=== PATIENT | female | born 1980 | race Caucasian/White ===

== ENCOUNTER 2020-06-12 16:47 | Outpatient (CLI) | payer BC, SELFPAY ==
--- NOTE | ~2020-06-12 | MM_ITS ---
EXAMINATION: MM screening margarita BI w roland HISTORY: Screening TECHNIQUE: Craniocaudal and mediolateral oblique 3-D tomosynthesis images were obtained and synthetic 2-D images were generated. CAD analysis was submitted and interpreted. COMPARISON: 08/25/2010 BREAST PARENCHYMAL COMPOSITION: There are scattered areas of fibroglandular density. FINDINGS: The right breast is stable without evidence for malignancy. There are developing asymmetrie s in the upper outer quadrant of the left breast. IMPRESSION: 1. Developing left breast asymmetry. 2. Additional mammographic views and possible breast ultrasound are recommended. BI-RADS Category 0: Incomplete: Needs additional imaging evaluation. Reviewed, dictated and finalized at location A. IMPRESSION: 1. Developing left breast asymmetry. 2. Additional mammographic views and possible breast ultrasound are recommended . BI-RADS Category 0: Incomplete: Needs additional imaging evaluation.
== END 2020-06-12 16:48 | disposition home or self-care (01) ==
PROVIDERS: Visit Provider Obstetrics & Gynecology
DX: Z12.31 Encounter for screening mammogram for malignant neoplasm of breast (principal); R92.8 Other abnormal and inconclusive findings on diagnostic imaging of breast
CPT/HCPCS: 77063; 77067

== ENCOUNTER 2020-07-24 12:47 | Outpatient (CLI) | payer BC, SELFPAY ==
--- NOTE | ~2020-07-24 | MMUS_ITS ---
EXAMINATION: MM diagnostic mammo unilat LT, US breast LT limited HISTORY: Developing asymmetry in the upper outer left breast on 06/12/2020 screening mammogram examinat ions TECHNIQUE: Additional 3-D tomosynthesis images of the left breast were performed and synthetic 2-D im ages were generated. CAD analysis was submitted and interpreted. High resolution upper outer quadrant left breast ultrasound examination was performed. COMPARISON: 08/25/2010 bilateral diagnostic digital mammogram and left breast ultrasound 06/12/2020 bilateral digital screening mammogram FINDINGS: MAMMOGRAPHIC FINDINGS: There is asymmetric increased density in the upper outer quadrant of the left breast, largely circums cribed and low density. ULTRASOUND: No discrete suspicious mass or cyst is identified in the upper outer quadrant of the left breast . Th e increased density noted mammographically may be due to asymmetric fibroglandular stroma. Differenti al diagnosis includes benign hamartoma. IMPRESSION: 1. Probably benign finding 2. 6 month diagnostic left mammogram follow-up is recommended, with ultrasound if required BI-RADS category 3, probably benign findings. Reviewed, dictated and finalized at location A. IMPRESSION: 1. Probably benign finding 2. 6 month diagnostic left mammogram follow-up is recommended, with ultrasound if required BI-RADS category 3, probably benign findings.
== END 2020-07-24 12:48 | disposition home or self-care (01) ==
LOC: ANHIMG 12:49
PROVIDERS: Visit Provider Obstetrics & Gynecology
DX: R92.8 Other abnormal and inconclusive findings on diagnostic imaging of breast (principal)
CPT/HCPCS: 76642; 77065

== ENCOUNTER 2021-02-10 11:42 | Outpatient (CLI) | payer OTHER, BC, SELFPAY ==
--- NOTE | ~2021-02-10 | MMUS_ITS ---
EXAMINATION: MM diagnostic margarita LT w roland, US breast LT limited HISTORY: 6 month diagnostic left mammogram and ultrasound follow-up of probably benign finding (asymm etric mammographic increased density in the upper outer quadrant of the left breast) TECHNIQUE: Full field and spot ML, MLO and craniocaudal 3-D tomosynthesis images of the left breast w ere performed and synthetic 2-D images were generated. CAD analysis was submitted and interpreted. Hi gh resolution upper outer quadrant left breast ultrasound was performed. COMPARISON: 07/24/2020 diagnostic left mammogram and limited left breast ultrasound 06/12/2020 bilateral digital screening mammogram BREAST PARENCHYMAL COMPOSITION: There are scattered areas of fibroglandular density. FINDINGS: MAMMOGRAPHIC FINDINGS: Stable mammographic asymmetry in the upper outer quadrant of the left breast. No interval suspicious mass or architectural distortion or architectural distortion or significant new or developing density is evident since 06/12/2020. No significant new or developing density. ULTRASOUND: No suspicious mass or architectural distortion or other significant sonographic abnormality is noted in the upper outer quadrant of the left breast. IMPRESSION: 1. No mammographic evidence of malignancy 2. Routine annual mammographic screening is recommended. BI-RADS Category 1: Negative Reviewed, dictated and finalized at location A. IMPRESSION: 1. No mammographic evidence of malignancy 2. Routine annual mammographic screening is recommended. BI-RADS Category 1: Negative
== END 2021-02-10 11:43 | disposition home or self-care (01) ==
PROVIDERS: PCP Family Medicine; Visit Provider Obstetrics & Gynecology
DX: R92.8 Other abnormal and inconclusive findings on diagnostic imaging of breast (principal)
CPT/HCPCS: 76642; 77061; 77065; G0279

== ENCOUNTER 2021-06-02 17:19 | Outpatient (CLI) | payer OTHER, BC, SELFPAY ==
--- NOTE | 2021-06-02 17:22 | ECG_ITS ---
Measurements Intervals [place] Rate: 68 P: -5 CT: 187 QRS: 83 QRSD: 110 T: 38 QT: 398 QTc: 424 Interpretive Statements SINUS RHYTHM INCOMPLETE RIGHT BUNDLE BRANCH BLOCK BORDERLINE T WAVE ABNORMALITY- ANTERIOR LEADS BORDERLINE ECG Electronically Signed On 06-02-2021 21:19:38 CDT by Adonis Westfall D.O.
== END 2021-06-02 17:20 | disposition home or self-care (01) ==
LOC: CHSCARD 17:21
PROVIDERS: PCP Family Medicine; Visit Provider Family Medicine
DX: R00.2 Palpitations (principal); R00.9 Unspecified abnormalities of heart beat
CPT/HCPCS: 93005

== ENCOUNTER 2021-06-03 17:15 | Outpatient (CLI) | payer OTHER, BC, SELFPAY ==
[2021-06-03 17:38] LABS: Hematocrit 41.5 % (35.0-49.0); Hemoglobin 13.5 g/dL (12.0-15.0); Mean Corpuscular HGB Conc 32.5 g/dL (32.0-36.0); Mean Corpuscular Hemoglobin 27.6 pg (27.0-31.0); Mean Corpuscular Volume 84.9 fL (78.0-102.0); Mean Platelet Volume 10.1 fl (9.2-11.8); Platelet Count Result 285 K/mm3 (150-420); Red Blood Count 4.89 M/mm3 (4.20-5.40); Red Cell Distribution Width 12.9 % (11.6-14.4); White Blood Count 7.2 K/mm3 (4.8-10.8)
[2021-06-03 17:47] LABS: Hemoglobin A1C 5.2 % (<5.7)
[2021-06-03 18:29] LABS: Alanine Aminotransferase 31 U/L (14-59); Albumin Level 3.8 g/dL (3.4-5.0); Alkaline Phosphatase 111 U/L (46-116); Anion Gap 12 mmol/L (8-16); Aspartate Amino Transferase 12 U/L (15-37); Bilirubin,Total 0.2 mg/dL (0.00-1.00); Blood Urea Nitrogen 18 mg/dL (7-18); Carbon Dioxide 27 mmol/L (21-32); Chloride 104 mmol/L (98-108); Estimated Glomerular Filt Rate > 60; Glucose 107 mg/dL (70-99); Osmolality Calculated 297 mOsm/kg (285-295); Potassium 3.7 mmol/L (3.5-5.1); Sodium 143 mmol/L (136-145); Total Protein 7.1 g/dL (6.4-8.2)
[2021-06-03 18:39] LABS: Thyroid Stimulating Hormone Reflex 2.57 u/IU/mL (0.36-3.74)
== END 2021-06-03 17:16 | disposition home or self-care (01) ==
LOC: CHSLAB 17:18
PROVIDERS: Family Medicine; PCP Family Medicine; Visit Provider Family Medicine
DX: R73.03 Prediabetes (principal); E66.9 Obesity, unspecified; Z68.38 Body mass index [BMI] 38.0-38.9, adult; Z00.00 Encounter for general adult medical examination without abnormal findings; I10 Essential (primary) hypertension
CPT/HCPCS: 36415; 80053; 83036; 84443; 85027

== ENCOUNTER 2022-02-10 09:17 | Outpatient (CLI) | payer OTHER, BC, SELFPAY ==
--- NOTE | ~2022-02-10 | US_ITS ---
EXAMINATION: US abdomen complete DATE: 02/10/2022 09:44 INDICATION: Left upper quadrant abdominal pain. TECHNIQUE: Multiple grayscale and Doppler ultrasound images of the abdomen were obtained. COMPARISON: Ultrasound abdomen 10/26/2012 FINDINGS: The visualized portions of the head and body of the pancreas are normal. Abdominal aorta is normal. Inferior vena cava is normal. The spleen is normal in size. The liver is normal without foca l lesion. There is normal flow in main portal vein. The gallbladder is absent. The common duct is nor mal and measures 4 mm. The kidneys are normal in size. IMPRESSION: 1. Normal complete abdomen ultrasound status post cholecystectomy. Reviewed, dictated and finalized at location A.
== END 2022-02-10 09:18 | disposition home or self-care (01) ==
LOC: CHSIMG 09:21
PROVIDERS: PCP Family Medicine; Visit Provider Nurse Practitioner Family
DX: R10.12 Left upper quadrant pain (principal)
CPT/HCPCS: 76700

== ENCOUNTER 2022-03-09 14:32 | Outpatient (CLI) | payer OTHER, BC, SELFPAY ==
--- NOTE | ~2022-03-09 | XR_ITS ---
EXAM: XR lumbar spine 2-3V HISTORY: L5/S1/coccyx pain since fall in 2018, worse x1wk, no new injury COMPARISON: None available FINDINGS: 5 nonrib-bearing lumbar-type vertebral bodies. Pedicles intact. Minimal 2 mm retrolisthesi s of L4 on L5 and L5 on S1, otherwise normal vertebral body alignment. Vertebral body heights preserv ed. Mild multilevel disc space narrowing and marginal osteophytosis. Mild facet arthropathy in the lo wer lumbar spine. Cholecystectomy clips. IMPRESSION: Mild multilevel degenerative disc disease and facet arthropathy. Reviewed, dictated and finalized at location K.
== END 2022-03-09 14:33 | disposition home or self-care (01) ==
LOC: CHSIMG 14:36
PROVIDERS: PCP Family Medicine; Visit Provider Family Medicine
DX: M54.9 Dorsalgia, unspecified (principal); G89.29 Other chronic pain
CPT/HCPCS: 72100

== ENCOUNTER 2022-11-27 09:09 | Outpatient (CLI) | payer BC, SELFPAY ==
[2022-11-27 09:33] LABS: Creatinine Urine 289.86 mg/dL (40-278); MALB Creatinine Ratio 8.9 mg/g (0-30)
[2022-11-27 09:34] LABS: Hemoglobin A1C 5.5 % (<5.7)
[2022-11-27 10:40] LABS: Alanine Aminotransferase 31 U/L (14-59); Albumin Level 3.6 g/dL (3.4-5.0); Alkaline Phosphatase 101 U/L (46-116); Anion Gap 9 mmol/L (8-16); Aspartate Amino Transferase < 10 U/L (15-37); Bilirubin,Total 0.4 mg/dL (0.00-1.00); Blood Urea Nitrogen 18 mg/dL (7-18); Calcium 8.6 mg/dL (8.5-10.1); Carbon Dioxide 29 mmol/L (21-32); Chloride 107 mmol/L (98-108); Cholesterol 186 mg/dL (0-200); Estimated Glomerular Filt Rate > 60; Glucose 100 mg/dL (70-99); HDL Direct 56 mg/dL (40-60); LDL Cholesterol Calculated 121 mg/dL (<130); Osmolality Calculated 301 mOsm/kg (285-295); Potassium 3.6 mmol/L (3.5-5.1); Sodium 145 mmol/L (136-145); Total Protein 6.9 g/dL (6.4-8.2); Triglycerides 46 mg/dL (0-150)
== END 2022-11-27 09:10 | disposition home or self-care (01) ==
LOC: CHSLAB 09:11
PROVIDERS: PCP Family Medicine; Visit Provider Family Medicine
DX: I10 Essential (primary) hypertension (principal); E11.9 Type 2 diabetes mellitus without complications
CPT/HCPCS: 36415; 80053; 80061; 82043; 83036

== ENCOUNTER 2023-01-06 19:02 | Outpatient (CLI) | payer BC, SELFPAY ==
[2023-01-06 20:14] LABS: Strep Group A RT-PCR NOT DETECTED (Negative)
== END 2023-01-06 19:03 | disposition home or self-care (01) ==
LOC: CHSLAB 19:04
PROVIDERS: PCP Family Medicine; Visit Provider Family Medicine
DX: J02.9 Acute pharyngitis, unspecified (principal)
CPT/HCPCS: 87651

== ENCOUNTER 2023-05-18 16:33 | Outpatient (CLI) | payer BC, SELFPAY ==
[2023-05-18 16:56] LABS: Basophils Absolute Auto 0.03 K/mm3 (0.00-0.10); Basophils Percent Auto 0.6 % (0.0-1.0); Eosinophils Absolute Auto 0.07 K/mm3 (0.02-0.50); Eosinophils Percent Auto 1.4 % (1.0-6.0); Hematocrit 43.8 % (35.0-49.0); Hemoglobin 14.7 g/dL (12.0-15.0); Immature Granulocyte Absolute 0.02 K/mm3 (0.00-0.00); Immature Granulocyte Percent A 0.4 % (0.0-0.0); Lymphocytes Percent Auto 34.4 % (18.0-42.0); Mean Corpuscular HGB Conc 33.6 g/dL (32.0-36.0); Mean Corpuscular Hemoglobin 28.7 pg (27.0-31.0); Mean Corpuscular Volume 85.4 fL (78.0-102.0); Mean Platelet Volume 10.4 fl (9.2-11.8); Monocytes Absolute Auto 0.48 K/mm3 (0.10-0.90); Monocytes Percent Auto 9.7 % (2.0-11.0); Neutrophils Absolute Auto 2.6 K/mm3 (1.7-7.2); Neutrophils Percent Auto 53.5 % (50.0-70.0); Platelet Count Result 290 K/mm3 (150-420); Red Blood Count 5.13 M/mm3 (4.20-5.40); Red Cell Distribution Width 12.7 % (11.6-14.4); White Blood Count 4.9 K/mm3 (4.8-10.8)
[2023-05-18 17:11] LABS: Alanine Aminotransferase 63 U/L (14-59); Alkaline Phosphatase 94 U/L (46-116); Anion Gap 11 mmol/L (8-16); Aspartate Amino Transferase 28 U/L (15-37); Bilirubin,Total 0.4 mg/dL (0.00-1.00); Blood Urea Nitrogen 14 mg/dL (7-18); Calcium 9.4 mg/dL (8.5-10.1); Carbon Dioxide 28 mmol/L (21-32); Chloride 105 mmol/L (98-108); Estimated Glomerular Filt Rate > 60; Glucose 81 mg/dL (70-99); Lipase 48 U/L (16-77); Osmolality Calculated 297 mOsm/kg (285-295); Sodium 144 mmol/L (136-145); Total Protein 7.7 g/dL (6.4-8.2)
[2023-05-24 02:10] LABS: Hepatitis A Antibody IgM Nonreactive; Hepatitis B Core Antibody Nonreactive (Nonreactive); Hepatitis B Surface Antigen Nonreactive (Nonreactive); Hepatitis C Virus Antibody Nonreactive
== END 2023-05-18 16:34 | disposition home or self-care (01) ==
PROVIDERS: PCP Nurse Practitioner Family; Visit Provider Nurse Practitioner Family
DX: R79.89 Other specified abnormal findings of blood chemistry (principal); R11.0 Nausea; R19.7 Diarrhea, unspecified
CPT/HCPCS: 36415; 80053; 80074; 83690; 85025; 87045; 87269; 87324; 87427

== ENCOUNTER 2023-05-26 20:07 | Emergency (ER) | payer OTHER, SELFPAY ==
[2023-05-26 20:17] VITALS: BP 130/90; PULSE 100; RESP 20; TEMP 36.8; O2SAT 97
[2023-05-26] MEDS: KETOROLAC (*BKC) 60 MG/2 ML VIAL IM (20:33)
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
[2023-05-26 21:20] VITALS: BP 133/74; PULSE 85; RESP 18; TEMP 36.6; O2SAT 97
== END 2023-05-26 21:27 | disposition home or self-care (01) ==
PROVIDERS: Emergency Provider Emergency Medicine; PCP Nurse Practitioner Family
DX: M53.3 Sacrococcygeal disorders, not elsewhere classified (principal); I10 Essential (primary) hypertension; V49.40XA Driver injured in collision with unspecified motor vehicles in traffic accident, initial encounter
CPT/HCPCS: 96372; 99283; J1885

== ENCOUNTER 2023-08-12 12:01 | Outpatient (CLI) | payer BC, SELFPAY ==
--- NOTE | 2023-08-12 12:05 | ECG_ITS ---
Measurements Intervals [place] Rate: 58 P: -9 TN: 190 QRS: 67 QRSD: 92 T: 44 QT: 435 QTc: 429 Interpretive Statements SINUS BRADYCARDIA MODERATE T-WAVE ABNORMALITY, CONSIDER ANTERIOR ISCHEMIA [-0.1+ mV T-WAVE IN V3/V4] ABNORMAL ECG COMPARED TO ECG 06/02/2021 17:36:06 SINUS BRADYCARDIA NOW PRESENT Electronically Signed On 08-13-2023 8:35:39 CDT by Arcadio Eid M.D.
[2023-08-12 12:58] LABS: Alanine Aminotransferase 29 U/L (14-59); Albumin Level 3.9 g/dL (3.4-5.0); Alkaline Phosphatase 99 U/L (46-116); Anion Gap 8 mmol/L (8-16); Aspartate Amino Transferase 13 U/L (15-37); Bilirubin,Total 0.4 mg/dL (0.00-1.00); Blood Urea Nitrogen 17 mg/dL (7-18); Calcium 9.7 mg/dL (8.5-10.1); Carbon Dioxide 30 mmol/L (21-32); Chloride 103 mmol/L (98-108); Cholesterol 194 mg/dL (0-200); Estimated Glomerular Filt Rate > 60; Glucose 81 mg/dL (70-99); HDL Direct 53 mg/dL (40-60); LDL Cholesterol Calculated 128 mg/dL (<130); Osmolality Calculated 292 mOsm/kg (285-295); Potassium 4.1 mmol/L (3.5-5.1); Sodium 141 mmol/L (136-145); Total Protein 7.2 g/dL (6.4-8.2); Triglycerides 64 mg/dL (0-150)
[2023-08-12 13:00] LABS: Thyroid Stimulating Hormone Reflex 1.58 u/IU/mL (0.36-3.74)
[2023-08-12 14:33] LABS: Folic Acid 4.6 ng/mL (8.6->20); Iron 49 ug/dL (50-170); Percent Iron Saturation 17 % (12-57); Vitamin B12 529 pg/mL (193-986)
[2023-08-12 15:54] LABS: Basophils Absolute Auto 0.03 K/mm3 (0.00-0.10); Basophils Percent Auto 0.5 % (0.0-1.0); Eosinophils Absolute Auto 0.08 K/mm3 (0.02-0.50); Eosinophils Percent Auto 1.4 % (1.0-6.0); Hematocrit 45.3 % (35.0-49.0); Hemoglobin 14.9 g/dL (12.0-15.0); Immature Granulocyte Absolute 0.01 K/mm3 (0.00-0.00); Immature Granulocyte Percent A 0.2 % (0.0-0.0); Lymphocytes Absolute Auto 1.65 K/mm3 (1.10-4.50); Mean Corpuscular HGB Conc 32.9 g/dL (32.0-36.0); Mean Corpuscular Volume 88.3 fL (78.0-102.0); Mean Platelet Volume 12.3 fl (9.2-11.8); Monocytes Absolute Auto 0.33 K/mm3 (0.10-0.90); Monocytes Percent Auto 5.6 % (2.0-11.0); Neutrophils Absolute Auto 3.8 K/mm3 (1.7-7.2); Neutrophils Percent Auto 64.3 % (50.0-70.0); Platelet Count Result 252 K/mm3 (150-420); Red Blood Count 5.13 M/mm3 (4.20-5.40); Red Cell Distribution Width 13.2 % (11.6-14.4); White Blood Count 5.9 K/mm3 (4.8-10.8)
[2023-08-12 15:57] LABS: Immature Reticulocyte Fraction 4.8 % (2.0-16.52); Reticulocyte Hemoglobin Conten 32.6 pg (28.0-35.0); Reticulocyte Percent 1.05 % (0.50-1.50); Reticulocytes Absolute 0.05 M/mm3 (0.02-0.1)
== END 2023-08-12 12:02 | disposition home or self-care (01) ==
LOC: CHSLAB 12:05
PROVIDERS: PCP Nurse Practitioner Family; Visit Provider Nurse Practitioner Family
DX: R42 Dizziness and giddiness (principal); Z82.49 Family history of ischemic heart disease and other diseases of the circulatory system; R94.31 Abnormal electrocardiogram [ECG] [EKG]; R00.1 Bradycardia, unspecified
CPT/HCPCS: 36415; 80053; 80061; 82607; 82746; 83540; 83550; 84443; 85025; 85046; 93005

== ENCOUNTER 2023-08-26 08:46 | Outpatient (CLI) | payer BC, SELFPAY ==
--- NOTE | 2023-08-30 09:12 | WPDHOLTEREM ---
Holter/Event Monitor Holter/Event Monitor Date of procedure: 08/26/23 Holter/Event Procedure: 48 Hr Holter Monitor Indications: Dizziness Conclusion: 1. 48 hour holter monitor on 08/26/23. 2. Underlying rhythm is sinus rhythm. HR range 48-136 bpm; average HR 75 bpm. 3. There are 6 premature supraventricular complexes and 1 supraventricular couplet. No supraventricular tachycardia. 4. There is 1 premature ventricular complex. No ventricular tachycardia. 5. No sinoatrial or atrioventricular blocks. No significant pauses greater than 2 seconds. 6. No symptoms available for correlation.
== END 2023-08-26 08:47 | disposition home or self-care (01) ==
LOC: CHSCARD 08:47
PROVIDERS: PCP Nurse Practitioner Family; Visit Provider Nurse Practitioner Family
DX: R42 Dizziness and giddiness (principal); R00.1 Bradycardia, unspecified; Z82.49 Family history of ischemic heart disease and other diseases of the circulatory system
CPT/HCPCS: 93225; 93226

== ENCOUNTER 2023-09-19 07:20 | Outpatient (CLI) | payer BC, SELFPAY ==
--- NOTE | 2023-09-19 07:24 | EST_ITS ---
Patient Info Name: Shelley Garcia Age: 43 years : 1980 Gender: Female Ht: 64 in Wt: 177 lbs BSA: 1.93 m2 Technical Quality: Good Exam Date: 09/19/2023 8:48 AM Exam Location: Echo Lab Patient Status: Outpatient Admit Date: 09/19/2023 Staff Ordering Physician: Sal Tran APRN Attending Provider: Sal Tran APRN Exam Type: CA stress test treadmill w NM Study Info A nuclear treadmill stress test was performed. History/Risk Factors Hypertension: Yes Family History: Coronary Artery Disease Summary 1. 1. Abnormal Juan Jose exercise stress test for ischemic ST changes by ECG criteria. 2. 2. Good functional capacity, achieving 10 METs of workload. 3. 3. Hypertensive response to exercise. 4. 4. Appropriate HR response to exercise. 5. 5. Appropriate HR recovery at 1 minute post exercise. 6. 6. Nuclear scan to follow and will be reported separately. Please correlate with it. Protocol: Juan Jose Stress ECG Details Stage: REST Duration (min): 1 min : 35 sec Speed (mph): 0.0 Grade (%): 0 HR (bpm): 72 SBP (mmHg): 110 DBP (mmHg): 69 METS: --- Stage: REST Duration (min): 1 min : 49 sec Speed (mph): 0.0 Grade (%): 0 HR (bpm): 68 SBP (mmHg): 110 DBP (mmHg): 69 METS: --- Stage: REST Duration (min): 29 min : 7 sec Speed (mph): 0.0 Grade (%): 0 HR (bpm): 96 SBP (mmHg): 110 DBP (mmHg): 69 METS: --- Stage: STAGE 1 Duration (min): 1 min : 0 sec Speed (mph): 1.7 Grade (%): 10 HR (bpm): 110 SBP (mmHg): 110 DBP (mmHg): 69 METS: --- Stage: STAGE 1 Duration (min): 2 min : 0 sec Speed (mph): 1.7 Grade (%): 10 HR (bpm): 124 SBP (mmHg): 110 DBP (mmHg): 69 METS: --- Stage: STAGE 1 Duration (min): 3 min : 0 sec Speed (mph): 1.7 Grade (%): 10 HR (bpm): 130 SBP (mmHg): 158 DBP (mmHg): 57 METS: --- Stage: STAGE 2 Duration (min): 1 min : 0 sec Speed (mph): 2.5 Grade (%): 12 HR (bpm): 144 SBP (mmHg): 158 DBP (mmHg): 57 METS: --- Stage: STAGE 2 Duration (min): 2 min : 0 sec Speed (mph): 2.5 Grade (%): 12 HR (bpm): 150 SBP (mmHg): 158 DBP (mmHg): 57 METS: --- Stage: STAGE 2 Duration (min): 3 min : 0 sec Speed (mph): 2.5 Grade (%): 12 HR (bpm): 160 SBP (mmHg): 134 DBP (mmHg): 72 METS: --- Stage: STAGE 3 Duration (min): 1 min : 0 sec Speed (mph): 3.4 Grade (%): 14 HR (bpm): 174 SBP (mmHg): 134 DBP (mmHg): 72 METS: --- Stage: STAGE 3 Duration (min): 2 min : 0 sec Speed (mph): 3.4 Grade (%): 14 HR (bpm): 182 SBP (mmHg): 134 DBP (mmHg): 72 METS: --- Stage: STAGE 3 Duration (min): 3 min : 0 sec Speed (mph): 3.4 Grade (%): 14 HR (bpm): 187 SBP (mmHg): 134 DBP (mmHg): 72 METS: --- Stage: RECOVERY Duration (min): 0 min : 59 sec Speed (mph): 0.0 Grade (%): 0 HR (bpm): 170 SBP (mmHg): 134 DBP (mmHg): 72 METS: ---
--- NOTE | 2023-09-19 07:24 | ECHO_ITS ---
Patient Info Name: Shelley Garcia Age: 43 years : 1980 Gender: Female Ht: 65 in Wt: 180 lbs BSA: 1.96 m2 HR: 65 bpm BP: 116 / 75 mmHg Heart Rhythm: Sinus Rhythm Technical Quality: Good Exam Date: 09/19/2023 2:39 PM Exam Location: Echo Lab Patient Status: Outpatient Admit Date: 09/19/2023 Staff Ordering Physician: Sal Tran APRN [employer]ester Operator: Rosaura Cardenas RDCS Attending Provider: Sal Tran APRN Exam Type: CA echo doppler color flow Study Info Indications - DIZZNESS Complete two-dimensional, color flow and Doppler transthoracic echocardiogram is performed. History/Risk Factors Hypertension: Yes Family History: Coronary Artery Disease Summary 1. Complete two-dimensional, color flow and Doppler transthoracic echocardiogram is performed. 2. Left ventricular chamber dimension is normal. 3. Left ventricular systolic function is normal, estimated at 60-65%. 4. The left ventricular diastolic function is grade I diastolic dysfunction. 5. E/e' 7 is not elevated. 6. There is trace mitral valve regurgitation. 7. There is mild tricuspid valve regurgitation. 8. No pulmonary hypertension, estimated pulmonary arterial systolic pressure is 26 mmHg. 9. There is trace pulmonic regurgitation. Left Ventricle E/e' 7 is not elevated. Left ventricular chamber dimension is normal. Left ventricular systolic function is normal, estimated at 60-65%. The left ventricular diastolic function is grade I diastolic dysfunction. Right Ventricle Right ventricular systolic function is normal and with normal TAPSE 2.9 cm. Right ventricular chamber dimension is normal. Left Atria Left atrial chamber dimension is normal. Right Atria Right atrial chamber dimension is normal. Aortic Valve The aortic valve is trileaflet. There is no aortic valve stenosis. There is no aortic valve regurgitation. Pulmonic Valve There is trace pulmonic regurgitation. Mitral Valve There is no mitral valve stenosis. There is trace mitral valve regurgitation. Tricuspid Valve There is mild tricuspid valve regurgitation. No pulmonary hypertension, estimated pulmonary arterial systolic pressure is 26 mmHg. Pericardium/Pleural There is no pericardial effusion. Inferior Vena Cava Normal inferior vena cava with >50% collapse upon inspiration consistent with normal right atrial pressure, 5 mmHg. Aorta The aortic root size at the sinus of Valsalva is normal. Left Ventricular Outflow Tract Name Value Normal LVOT 2D LVOT Diameter 2.0 cm LVOT Doppler LVOT Peak Velocity 106 cm/s LVOT Peak Gradient 3 mmHg LVOT Mean Gradient 2 mmHg LVOT VTI 22 cm LVOT VTI/AV VTI Ratio 0.6 LVOT Stroke Volume 73 ml Pulmonic Valve Name Value Normal RVOT Doppler RVOT Peak Gradient 2 mmHg
--- NOTE | 2023-09-19 13:10 | WPDCARIOSTRE ---
Nuclear Stress Test INDICATIONS Indications: Dizziness PROCEDURE Procedure Performed: Myocardial Perf Spect-Multi Procedure: Patient underwent a standard Juan Jose protocol and at peak exercise was injected with 30.3 mCi of cardiolyte. Multiple tomographic images were obtained. These are of good quality. There is no perfusion defect with stress imaging. A separate resting images were obtained after injected with 9.8 mCi of cardiolyte. Multiple tomographic images were obtained. These are of good quality. There is evidence of large size, moderate severity apical and septal perfusion defects with rest imaging. CONCLUSION Conclusion: 1. Normal myocardial perfusion imaging demonstrating no perfusion defect with stress imaging. 2. No evidence of reversible ischemia. 3. Left ventriculogram demonstrates normal measured ejection fraction of 68% with no wall motion abnormalities. 4. TID score 0.72 is normal.
== END 2023-09-19 07:21 | disposition home or self-care (01) ==
LOC: CHSIMG 07:21
PROVIDERS: PCP Family Medicine; Visit Provider Nurse Practitioner Family
DX: R42 Dizziness and giddiness (principal); R55 Syncope and collapse; Z82.49 Family history of ischemic heart disease and other diseases of the circulatory system
CPT/HCPCS: 78452; 93017; 93306; A9502

== ENCOUNTER 2023-12-24 12:59 | Emergency (ER) | payer BC, SELFPAY ==
--- NOTE | ~2023-12-24 | XR_ITS ---
EXAM: XR wrist LT min 3V DATE: 12/24/2023 14:14 HISTORY: LT wrist pain after slipping on ice falling onto LT arm . COMPARISON: 06/14/2016. FINDINGS: Normal mineralization. No fracture or dislocation. No lytic or blastic lesion. Joint space s are maintained. No erosion or periosteal change. Soft tissues within normal limits. IMPRESSION: No acute osseous finding in the left wrist. Reviewed, dictated and finalized at location K. 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
--- NOTE | ~2023-12-24 | XR_ITS ---
EXAM: XR elbow LT 2V, XR humerus LT DATE: 12/24/2023 14:15 (accession [id number]), 12/24/2023 14:13 (accession [id number]) HISTORY: fell on ice on LT arm; severe elbow pain sherly w/twisting LROM . COMPARISON: None available. FINDINGS: Normal mineralization. No fracture or dislocation. No lytic or blastic lesion. Joint space s are maintained. No erosion or periosteal change. Displaced anterior fat pad. IMPRESSION: Left elbow joint effusion, as can be seen with occult radial head fractures in a patient of this age. Reviewed, dictated and finalized at location K. TECH IMPRESSION: Left elbow joint effusion, as can be seen with occult radial head f ractures in a patient of this age.
[2023-12-24 13:02] VITALS: BP 129/97; PULSE 88; RESP 19; TEMP 36.6; O2SAT 100
[2023-12-24] MEDS: IBUPROFEN 600 MG TABLET PO (13:26)
--- NOTE | 2023-12-24 14:04 | ED.UPPEXIN ---
HPI - Extremity Injury (Upper) General Chief Complaint: Extremity Injury, Upper Stated Complaint: L arm injury/slip on ice Time Seen by Provider: 12/24/23 13:02 Source: patient and family Mode of arrival: ambulatory Limitations: no limitations History of Present Illness HPI narrative: this is a 43-year-old female that has left arm pain including her elbow after she fell in a patch of ice earlier this morning causing pain and point tenderness to the left arm and elbow area. Patient has difficulty with movement of her left elbow with point tenderness in the left elbow area with no numbness or tingling has a brisk strong radial pulse on the left. complaint: injury to: left Onset (ago): hour(s) Other Extremity Injury: Left: arm ( tender with decreased range of motion) Handedness: right Place: outdoors Severity: moderate Severity scale (1-10): 6 Relieving factors: immobilization Exacerbating factors: movement of extremity Context: fall Related Data Allergies Allergy/AdvReac Type Severity Reaction Status Date / Time No Known Allergies Allergy Verified 12/24/23 13:09 Review of Systems Review of Systems: All systems reviewed & are unremarkable except as noted in HPI and below PMFSH Past Medical History Medical History Class 2 obesity with body mass index (BMI) of 38.0 to 38.9 in adult Hypertension Incomplete right bundle branch block (RBBB) PCOS (polycystic ovarian syndrome) Pre-diabetes Surgical History Surgical History History of bilateral tubal ligation History of cholecystectomy History of hysterectomy Family History Family History Father , heart attack at 55 yo Acute myocardial infarction Other , massive VT at 42 yo Acute myocardial infarction Other , massive VT at 45 Acute myocardial infarction Other , massive VT 57 yo Acute myocardial infarction Other , massive VT at 36 yo Acute myocardial infarction Social History Social History Smoking status: Never smoker Substance use: never Living arrangements: with family Additional living arrangements comments: . Occupation/Education: occupation Additional occupation/education comments: Works at [employer] Exam Const: General: healthy appearing Nutritional Appearance: well nourished Orientation/consciousness: patient oriented x3 Neck: Neck: normal visual inspection Chest: Chest palpation & inspection: normal inspection of the chest Resp: Effort & Inspection: normal respiratory effort Auscultation: clear to auscultation bilaterally Cardio: Rate: regular rate Rhythm: regular rhythm GI: GI Palp: Yes Soft to palpation Skin: General skin exam: normal color Rashes: no rashes Neuro: General: patient oriented x3 and no meningeal signs Extrem: Other: Tenderness left elbow area with a decreased range of motion and point tenderness Psych: Mental Status: mental status grossly normal Course Course Emergency Course: x-rays reviewed of the left arm left elbow joint effusion and occult radial fracture nondisplaced left arm, advised follow-up with primary care physician and advised orthopedic follow-up. Patient received p.o. Motrin 600mg. Vital Signs Vital signs: Vital Signs Temperature 36.6 C 12/24/23 13:02 Pulse Rate 88 12/24/23 13:02 Respiratory Rate 19 12/24/23 13:02 Blood Pressure 129/97 H 12/24/23 13:02 Pulse Oximetry 100 12/24/23 13:02 Oxygen Delivery Room Air 12/24/23 13:02 Temperature 36.6 C 12/24/23 13:02 Pulse Rate 88 12/24/23 13:02 Respiratory Rate 19 12/24/23 13:02 Blood Pressure 129/97 H 12/24/23 13:02 Pulse Oximetry 100 12/24/23 13:02 Oxygen Delivery Room Air 12/24/23 13:02
[2023-12-24 15:18] VITALS: BP 137/107; PULSE 87; RESP 20; TEMP 36.7; O2SAT 100
== END 2023-12-24 15:18 | disposition home or self-care (01) ==
PROVIDERS: Emergency Provider Emergency Medicine; PCP Nurse Practitioner Family
DX: S52.125A Nondisplaced fracture of head of left radius, initial encounter for closed fracture (principal); I10 Essential (primary) hypertension; W00.0XXA Fall on same level due to ice and snow, initial encounter
CPT/HCPCS: 29105; 73060; 73070; 73110; 99284; A9270

== ENCOUNTER 2024-01-02 10:10 | Outpatient (CLI) | payer BC, SELFPAY ==
--- NOTE | ~2024-01-02 | XR_ITS ---
EXAMINATION: XR elbow LT min 3V DATE: 01/02/2024 10:31 INDICATION: Left elbow injury. TECHNIQUE: 5 views of left elbow were obtained. COMPARISON: Left elbow radiograph 12/24/2023 FINDINGS: Bone alignment normal. No fracture. Joint spaces are normal. There is an enthesophyte at guevara blime tubercle of proximal ulna. No elbow joint effusion. IMPRESSION: 1. No fracture. Reviewed, dictated and finalized at location A. CLOTHIER IMPRESSION: 1. No fracture.
== END 2024-01-02 10:11 | disposition home or self-care (01) ==
PROVIDERS: PCP Family Medicine; Visit Provider Orthopaedic Surgery
DX: M25.522 Pain in left elbow (principal)
CPT/HCPCS: 73080

== ENCOUNTER 2024-01-10 12:06 | Outpatient (CLI) | payer BC, SELFPAY ==
[2024-01-10 12:23] LABS: Basophils Absolute Auto 0.02 K/mm3 (0.00-0.10); Basophils Percent Auto 0.3 % (0.0-1.0); Eosinophils Percent Auto 1.7 % (1.0-6.0); Hemoglobin 14.7 g/dL (12.0-15.0); Immature Granulocyte Absolute 0.03 K/mm3 (0.00-0.00); Immature Granulocyte Percent A 0.5 % (0.0-0.0); Lymphocytes Absolute Auto 1.59 K/mm3 (1.10-4.50); Lymphocytes Percent Auto 26.3 % (18.0-42.0); Mean Corpuscular HGB Conc 33.4 g/dL (32.0-36.0); Mean Corpuscular Hemoglobin 28.9 pg (27.0-31.0); Mean Corpuscular Volume 86.6 fL (78.0-102.0); Mean Platelet Volume 9.9 fl (9.2-11.8); Monocytes Absolute Auto 0.32 K/mm3 (0.10-0.90); Monocytes Percent Auto 5.3 % (2.0-11.0); Neutrophils Percent Auto 65.9 % (50.0-70.0); Platelet Count Result 238 K/mm3 (150-420); Red Blood Count 5.08 M/mm3 (4.20-5.40); Red Cell Distribution Width 11.8 % (11.6-14.4)
[2024-01-10 13:18] LABS: Alanine Aminotransferase 28 U/L (14-59); Albumin Level 3.9 g/dL (3.4-5.0); Alkaline Phosphatase 92 U/L (46-116); Anion Gap 9 mmol/L (8-16); Aspartate Amino Transferase 12 U/L (15-37); Bilirubin,Total 0.6 mg/dL (0.00-1.00); Blood Urea Nitrogen 20 mg/dL (7-18); Carbon Dioxide 29 mmol/L (21-32); Chloride 100 mmol/L (98-108); Cholesterol 207 mg/dL (0-200); Estimated Glomerular Filt Rate > 60; Glucose 85 mg/dL (70-99); HDL Direct 70 mg/dL (40-60); LDL Cholesterol Calculated 125 mg/dL (<130); Osmolality Calculated 287 mOsm/kg (285-295); Potassium 3.8 mmol/L (3.5-5.1); Sodium 138 mmol/L (136-145); Thyroid Stimulating Hormone 2.31 uIU/mL (0.36-3.74); Total Protein 7.1 g/dL (6.4-8.2); Triglycerides 58 mg/dL (0-150)
== END 2024-01-10 12:07 | disposition home or self-care (01) ==
LOC: CHSLAB 12:07
PROVIDERS: PCP Nurse Practitioner Family; Visit Provider Nurse Practitioner Family
DX: Z00.00 Encounter for general adult medical examination without abnormal findings (principal)
CPT/HCPCS: 36415; 80053; 80061; 84443; 85025

== ENCOUNTER 2024-01-11 13:51 | Outpatient (CLI) | payer BC, SELFPAY ==
--- NOTE | ~2024-01-11 | MM_ITS ---
EXAMINATION: MM screening margarita BI w roland HISTORY: Screening mammogram TECHNIQUE: Craniocaudal and mediolateral oblique 3-D tomosynthesis images were obtained and synthetic 2-D images were generated. CAD analysis was submitted and interpreted. COMPARISON: February 10, 2021 diagnostic left mammogram and limited left breast ultrasound July 24, 2020 diagnostic left mammogram and limited left breast ultrasound June 12, 2020 bilateral screening mammogram BREAST PARENCHYMAL COMPOSITION: There are scattered areas of fibroglandular density. FINDINGS: Stable fibroglandular asymmetry. There is no evidence of suspicious mass, calcification, or architectural distortion to suggest malignancy in either breast. There has been no suspicious interv al change. IMPRESSION: 1. Chronic fibroglandular asymmetry, upper outer left breast No mammographic evidence of malignancy. 2. Recommend routine screening mammography in one year. BI-RADS Category 2: Benign finding(s). Reviewed, dictated and finalized at location A. 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 Chronic fibroglandular asymmetry, upper outer left breast No mammographic ev idence of malignancy. 2. Recommend routine screening mammography in one year. BI-RADS Category 2: Benign finding(s).
== END 2024-01-11 13:52 | disposition home or self-care (01) ==
PROVIDERS: PCP Nurse Practitioner Family; Visit Provider Nurse Practitioner Family
DX: Z12.31 Encounter for screening mammogram for malignant neoplasm of breast (principal)
CPT/HCPCS: 77063; 77067

== ENCOUNTER 2024-01-20 15:53 | Outpatient (RCR) | payer BC, SELFPAY ==
--- NOTE | 2024-01-23 10:07 | BUOTOPEVAL ---
Assessment and note entered by Cheerlle Orozco OT Evaluation Information Assessment Status Evaluation Diagnosis Displaced fracture of head of unspecified radius, initial encounter closed Onset 01/16/24 Subjective Information The patient reports she fell on the ice and did not remember her fall. The patient reports no pacemaker or defibrillator. Reported Pain Level Pain Score 3: Self Report Assessment OT Clinical Summary The patient is a 43 year old female who was referred to outpatient OT due to radius fracture of L UE. The patient is non weight bearing to L UE at this time. The patient previously demonstrated WNL AROM, strength and certified juvenile probation officer/pinch strength and now demonstrates limited elbow extension, moderately impaired certified juvenile probation officer and pinch strength and pain in L elbow. The patient requires skilled OT to address deficits and return to PLOF. Plan of Care Interventions Therapeutic Exercise,Manual Therapy,Neuro Re- education,Therapeutic Activities,Hot Pack/Cold Pack,Electrical Stimulation,Self-Care/Home Management OT Services Indicated Yes Treatment Frequency and 2x/week for 6 visits. Duration These treatments will address the objective and functional deficits as defined above. The patient will be advanced safely and appropriately in order for the patient to progress towards his/her prior level of function. Additional exercises will be introduced and as well as a comprehensive home exercise program upon discharge, if needed, ?to ensure carryover of functional gains achieved in the clinic. This treatment plan has been reviewed and agreement upon by the patient.
--- NOTE | 2024-02-06 15:36 | OTOPDC ---
Assessment and note entered by Cherelle Orozco, OT Evaluation Information Assessment Status Discharge Subjective Information The patient reports that she can use her arm with only 2/10 pain if there is any pain. She reports that she is not lifting or pushing with UE but does fine during her ADLs without discomfort. She reports no numbness/tingling and completes daily tasks with independence. The patient reports 2/10 pain in elbow described as a little. Reported Pain Level Pain Score 2: Self Report Assessment OT Clinical Summary The patient demonstrates significant progress in UE AROM, iron melter strength and pain symptoms of L UE leading to increased independence with ADLs. The patient demonstrates WFL elbow extension to L UE and has made significant progress in iron melter and pinch strength, therapist educated the patient to continue to address iron melter/pinch strength and perform AROM of HEP. To engage in tricep stretching and strengthening of elbow upon clearance from MD which patient will see 02/07/24. The patient demonstrates good understanding and carryover of HEP at this time and is discharged due to significant progress in AROM, pain and iron melter strength. The patient scored 47.7% on QuickDASH at discharge, the patient's score reflect unable for all activities that take force through UE due to not being released by MD. Plan of Care OT Services Indicated No
== END 2024-02-06 17:19 | disposition home or self-care (01) ==
LOC: CHSOT 15:53
PROVIDERS: Visit Provider Orthopaedic Surgery
DX: S52.123D Displaced fracture of head of unspecified radius, subsequent encounter for closed fracture with routine healing (principal)
CPT/HCPCS: 97014; 97110; 97140; 97165; 97530; G0283

== ENCOUNTER 2024-07-16 11:53 | Outpatient (CLI) | payer BC, SELFPAY ==
--- NOTE | ~2024-07-16 | XR_ITS ---
Thoracic spine: Clinical Indication: Back pain AP and lateral views were performed. No fracture is seen. There is normal alignment of the vertebrae. The intervertebral disc spaces appe ar normal. Paravertebral soft tissues appear normal. Impression: No significant abnormalities noted. Reviewed, dictated and finalized at [facility]. Impression: No significant abnormalities noted.
== END 2024-07-16 11:54 | disposition home or self-care (01) ==
PROVIDERS: PCP Nurse Practitioner Family; Visit Provider Nurse Practitioner Family
DX: M54.50 Low back pain, unspecified (principal)
CPT/HCPCS: 72072

== ENCOUNTER 2024-07-18 07:54 | Outpatient (RCR) | payer BC, SELFPAY ==
--- NOTE | 2024-07-18 09:10 | OPREHPOC ---
Outpatient Therapy Plan of Care This is a Multidisciplinary Plan of Care that may contain components documented by all disciplines (PT, OT, and ST.) PT Problem 1 PT Problem #1 Knowledge Deficit PT Goal 1 Goal / Goal Update 1. independent and compliant with HEP Target Visit 4 PT Problem 2 PT Problem #2 Pain PT Goal 1 Goal / Goal Update 1. patient to report no more than 2/10 pain at worst in the middle back. Target Visit 8 PT Problem 3 PT Problem #3 Impaired Functional Mobil PT Goal 1 Goal / Goal Update 1. patient to have no palpable tenderness in the L side thoracic spine 2. patient to report no burning sensation in the L side middle back/rib 3. oswestry to display 25% or less functional deficits
--- NOTE | 2024-07-18 09:10 | PTOPEVAL1 ---
Assessment and note entered by JT File, PT Evaluation Information Assessment Status Evaluation ICD-10 Condition Codes (PT) M54.6 Onset 07/16/24 Subjective Information patient report she has pain in the middle back that is just off the side of her spine and feels like a burning pain. she reports no injury, and that her pain has been going on for a few months. she reports she has been to health care technician which has not helped snf (some short term relief after treatments - 1 or 2 days). she reports her symptoms are worse with being upright in a sitting or standing position, and lessened when laying supine. she reports she sleeps on her back and her L side. she reports she has difficulty sleeping both getting comfortable to fall asleep and with staying asleep. 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 she reports she does not have any radicular symptoms to the flank or the belly. she reports she does have a burning pain in the L upper quadrant, but reports this has been around for a long time (a lot longer than her back symptoms). Reported Pain Level Pain Score 3: Self Report Assessment PT Clinical Summary mrs. melgoza is a 43 yo woman who presents to skilled PT services for evaluation and treatment of L upper back pain. she presents today with signs and symptoms of a hypomobile rib on the L side at the T6-T7 area. presents with point tenderness in the area, poor posture, burning sensation, and decreased tolerance to standing and sitting positions impacting her daily activities. she would benefit from continued skilled PT to address her objective/functional deficits and return to her prior level functional activity performance/quality of life. Plan of Care Interventions Electrical Stimulation,Hot Pack/Cold Pack,Manual Therapy,Neuro Re-education,Patient/Caregiver Educati,Therapeutic Activities,Therapeutic Exercise PT Services Indicated Yes Treatment Frequency and 2x weekly for 8 visits Duration These treatments will address the objective and functional deficits as defined above. The patient will be advanced safely and appropriately in order for the patient to progress towards his/her prior level of function. Additional exercises will be introduced and as well as a comprehensive home exercise program upon discharge, if needed, ?to ensure carryover of functional gains achieved in the clinic. This treatment plan has been reviewed and agreement upon by the patient.
--- NOTE | 2024-07-23 15:50 | PCPTNOTE ---
Patient called & cancelled scheduled appointment this date.
--- NOTE | 2024-08-08 18:04 | OPREHPOC ---
Outpatient Therapy Plan of Care This is a Multidisciplinary Plan of Care that may contain components documented by all disciplines (PT, OT, and ST.) PT Problem 1 PT Problem #1 Knowledge Deficit PT Goal 1 Goal / Goal Update 1. independent and compliant with HEP Target Visit 4 PT Problem 2 PT Problem #2 Pain PT Goal 1 Goal / Goal Update 1. patient to report no more than 2/10 pain at worst in the middle back. Target Visit 8 PT Goal 2 Goal / Goal Update Patient to report no greater than 2/10 right shoulder pain with reaching behind her back and lifting. Target Visit 14 PT Problem 3 PT Problem #3 Impaired Functional Mobil PT Goal 1 Goal / Goal Update 1. patient to have no palpable tenderness in the L side thoracic spine 2. patient to report no burning sensation in the L side middle back/rib 3. oswestry to display 25% or less functional deficits PT Goal 2 Goal / Goal Update Patient to demonstrate 30% or less self perceived disability per the Quick DASH. PT Problem 4 PT Problem #4 Impaired Range of Motion PT Goal 1 Goal / Goal Update Patient to demonstrate R shoulder abduction AROM of 140 degrees without pain elicited. Patient to demonstrate pain free right shoulder IR to T12.
--- NOTE | 2024-08-08 18:04 | PTOPREEVAL ---
Assessment and note entered by Cassandra Roberts, PT Evaluation Information Assessment Status Re-evaluation ICD-10 Condition Codes (PT) M25.511 Onset 08/06/24 Subjective Information Shelley reports her right shoulder started hurting about 3 months ago when she reached for a bag of groceries in the back seat and lifted it up with her right arm. She felt pain in the front and side of the shoulder immediately and it has continue to hurt since then. She is noting difficulty reaching to the side and reaching behind her back with makes dressing, donning a seatbelt, lifting items, and pulling blankets over her difficult. She is also still having intermittent pain in her left mid back. Reported Pain Level Pain Score 4,3: Self Report Assessment PT Clinical Summary Shelley Garcia presents with right shoulder pain that started about 3 months ago when lifting a bag of groceries in an abducted and externally rotated position. She has difficulty reaching to the side and behind her back leading to difficulty with dressing, bathing, and lifting daily items. She objectively demonstrates decreased and painful right shoulder AROM, decreased right shoulder strength, positive special tests consistent with impingement and rotator cuff tendonitis, and decreased functional abilities. She will benefit from skilled PT to address these limitations and continue addressing left mid back pain. Plan of Care Interventions Electrical Stimulation,Hot Pack/Cold Pack,Manual Therapy,Neuro Re-education,Patient/Caregiver Educati,Therapeutic Activities,Therapeutic Exercise PT Services Indicated Yes Treatment Frequency and 2 times a week for 8 visits Duration These treatments will address the objective and functional deficits as defined above. The patient will be advanced safely and appropriately in order for the patient to progress towards his/her prior level of function. Additional exercises will be introduced and as well as a comprehensive home exercise program upon discharge, if needed, ?to ensure carryover of functional gains achieved in the clinic. This treatment plan has been reviewed and agreement upon by the patient.
--- NOTE | 2024-09-10 17:49 | PTOPDC ---
Assessment and note entered by Brian Ambriz Evaluation Information Assessment Status Re-evaluation ICD-10 Condition Codes (PT) M25.511 Onset 08/06/24 Subjective Information Pt. reports no change in her right shoulder pain. She states that pain is increased with reaching behind her back and reaching across her body. She states that she still has difficulty with sleep due to pain. She reports she saw the ortho who suggested she seek an MRI for her continued shoulder pain. She reports that she will continue with her HEP. Reported Pain Level Pain Score 3,0: Self Report Assessment PT Clinical Summary Pt. has attended 8 treatment sessions regarding development of right shoulder pain. She demonstrates improvements in mobility, however pain continues to persist. Objective findings are consistent with impingement syndrome of the right shoulder. She would benefit from possible imaging at this time to better determine integrity of the soft tissues at the right shoulder. We will discharge the pt. at this time. Plan of Care PT Services Indicated No
== END 2024-09-10 20:00 | disposition home or self-care (01) ==
LOC: CHSPT 07:54
PROVIDERS: Visit Provider Nurse Practitioner Family
DX: M54.6 Pain in thoracic spine (principal)
CPT/HCPCS: 97014; 97110; 97140; 97150; 97161; G0283

== ENCOUNTER 2024-12-10 09:49 | Outpatient (RCR) | payer BC, SELFPAY ==
[2024-12-10 10:03] VITALS: BP_SYST 175; BP_SYST 75
--- NOTE | 2024-12-10 16:35 | PCPTNOTE ---
I reviewed the License Pending Therapist's documentation and agree with the findings.
--- NOTE | 2024-12-24 16:36 | PCPTNOTE ---
I reviewed the License Pending Therapist's documentation and agree with the findings.
--- NOTE | 2024-12-26 13:04 | PTOPEVAL1 ---
Assessment and note entered by Malissa Ledbetter, PT Evaluation Information Assessment Status Evaluation Diagnosis Adhesive capsulitis of R shoulder ICD-10 Condition Codes (PT) Pain in right shoulder M25.511 Other ICD-10 Condition Codes ( M75.01 PT) Onset 04/07/24 Subjective Information Pt reports onset of R shoulder pain when attempting to open her car door. States she thought she tore her rotator cuff and went to the doctor who recommended PT. Pt underwent PT for her shoulder and upper back with little benefit in shoulder pain. She underwent R shoulder capsular release 3 days ago and is now being referred to PT for post-op rehab. She has been using her ice machine frequently and was wearing a sling until the nerve block wore off. Pain is mild at rest but increases with movement and can radiate down the arm. Denies numbness/tingling in the arm.` Assessment PT Clinical Summary Mrs. Garcia is a 44 year old female presenting to physical therapy for R shoulder pain following capsular release on 12/07/23. She demonstrates limited passive ROM of the R shoulder as well as pain at end range, as well as functional decline due to pain and limited use of the arm. She will benefit from skilled PT intervention per protocol to address these deficits and return to prior level of function. Plan of Care Interventions Electrical Stimulation,Gait Training,Hot Pack/Cold Pack,Manual Therapy,Neuro Re-education,Patient/ Caregiver Education,Therapeutic Activities, Therapeutic Exercise,Self-Care/Home Management PT Services Indicated Yes Treatment Frequency and 2x/week for 12 visits Duration These treatments will address the objective and functional deficits as defined above. The patient will be advanced safely and appropriately in order for the patient to progress towards his/her prior level of function. Additional exercises will be introduced and as well as a comprehensive home exercise program upon discharge, if needed, ?to ensure carryover of functional gains achieved in the clinic. This treatment plan has been reviewed and agreement upon by the patient.
--- NOTE | 2024-12-31 11:30 | PCPTNOTE ---
Cancelled session. Can't make it today.
[2025-01-16 17:08] VITALS: BP_SYST 180
--- NOTE | 2025-01-16 17:54 | OPREHPOC ---
Outpatient Therapy Plan of Care This is a Multidisciplinary Plan of Care that may contain components documented by all disciplines (PT, OT, and ST.) PT Problem 1 PT Problem #1 Knowledge Deficit PT Goal 1 Goal / Goal Update Pt to be independent with HEP. Target Visit 2 Progress Met PT Problem 2 PT Problem #2 Pain PT Goal 1 Goal / Goal Update Pt to report 0/10 pain at rest. Pt to report no more than 4/10 pain with PROM exercises. -met Target Visit 12 Progress Partially Met PT Problem 3 PT Problem #3 Impaired Range of Motion PT Goal 1 Goal / Goal Update Pt to improve R shoulder flexion PROM to 175 degrees. -not met Pt to improve R shoulder ER prom to 80 degrees. - not met Pt to improve R shoulder abduction PROM to 150 degrees. -met Target Visit 12 Progress Partially Met PT Goal 2 Goal / Goal Update Pt to improve R flexion AROM to 165 degrees. Pt to improve R abduction AROM to 150 degrees. Target Visit 20 PT Problem 4 PT Problem #4 Impaired Functional Mobility PT Goal 1 Goal / Goal Update Pt to improve quickDASH score to no more than 45% disability. 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 - not met Target Visit 12 Progress Partially Met
--- NOTE | 2025-01-16 17:54 | PTOPPROG ---
Assessment and note entered by Malissa Ledbetter, PT Evaluation Information Assessment Status Progress Diagnosis Adhesive capsulitis of R shoulder ICD-10 Condition Codes (PT) Pain in right shoulder M25.511 Other ICD-10 Condition Codes ( M75.01 PT) Onset 04/07/24 Subjective Information Mrs. Garcia reports overall 70% improvement in her R shoulder ROM, especially with forward flexion and abduction. She is now in the second phase of her post-op protocol and is progressing with AROM and strengthening as tolerated. She still experiences pain with internal and external rotation which interferes with her ability to tie her hair up in a ponytail, open a jar, wash her back or put on a jacket. She feels like her strength has improved slightly since starting PT. Assessment PT Clinical Summary Mrs. Garcia has attended 12 total skilled physical therapy visits addressing R shoulder ROM and scapular stabilization per protocol following R capsular release. She has made good improvements in her passive and active R shoulder ROM since beginning therapy but lacks strength and overall functional use of the arm. 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 She will benefit from continued skilled PT intervention to make further improvements in ROM and strength per protocol to return to prior level of function. Plan of Care Interventions Electrical Stimulation,Hot Pack/Cold Pack,Manual Therapy,Neuro Re-education,Patient/Caregiver Education,Therapeutic Activities,Therapeutic Exercise,Self-Care/Home Management PT Services Indicated Yes Treatment Frequency and 3x/week for 8 additional visits Duration These treatments will address the objective and functional deficits as defined above. The patient will be advanced safely and appropriately in order for the patient to progress towards his/her prior level of function. Additional exercises will be introduced and as well as a comprehensive home exercise program upon discharge, if needed, ?to ensure carryover of functional gains achieved in the clinic. This treatment plan has been reviewed and agreement upon by the patient.
--- NOTE | 2025-02-06 16:12 | PCPTNOTE ---
Cancelled session due to weather.
[2025-02-27 17:06] VITALS: BP_SYST 180
--- NOTE | 2025-02-27 18:11 | OPREHPOC ---
Outpatient Therapy Plan of Care This is a Multidisciplinary Plan of Care that may contain components documented by all disciplines (PT, OT, and ST.) PT Problem 1 PT Problem #1 Knowledge Deficit PT Goal 1 Goal / Goal Update Pt to be independent with HEP. Target Visit 2 Progress Met PT Problem 2 PT Problem #2 Pain PT Goal 1 Goal / Goal Update Pt to report 0/10 pain at rest. -met Pt to report no more than 4/10 pain with PROM exercises. -met Target Visit 12 Progress Met PT Problem 3 PT Problem #3 Impaired Range of Motion PT Goal 1 Goal / Goal Update Pt to improve R shoulder flexion PROM to 175 degrees. -met Pt to improve R shoulder ER prom to 80 degrees. - not met Pt to improve R shoulder abduction PROM to 150 degrees. -met Target Visit 12 Progress Partially Met PT Goal 2 Goal / Goal Update Pt to improve R flexion AROM to 165 degrees. -met Pt to improve R abduction AROM to 150 degrees. - not met Target Visit 28 Progress Partially Met PT Problem 4 PT Problem #4 Impaired Functional Mobility PT Goal 1 Goal / Goal Update Pt to improve quickDASH score to no more than 45% disability. 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 - met Target Visit 12 Progress Met PT Problem 5 PT Problem #5 Impaired Strength PT Goal 1 Goal / Goal Update Pt to improve gross R shoulder strength to 4+/5. Target Visit 28 Progress Not Met
--- NOTE | 2025-02-27 18:11 | PTOPPROG ---
Assessment and note entered by Malissa Ledbetter, PT Evaluation Information Assessment Status Progress Diagnosis Adhesive capsulitis of R shoulder ICD-10 Condition Codes (PT) Pain in right shoulder M25.511 Other ICD-10 Condition Codes ( M75.01 PT) Onset 04/07/24 Subjective Information Shelley reports her shoulder continues to feel slightly better. Her pain is achy and comes and goes, she still takes ibuprofen occasionally but states she takes it more for her headaches and back pain than for shoulder pain. She is full duty at work and overall her shoulder no longer holds her back from anything but the pain is still nagging. She states she signed up for a mud race in May and still feels like her strength is lacking, and she wants to continue getting stronger to be prepared for the race. Assessment PT Clinical Summary Shelley has attended 20 total skilled PT visits following R shoulder capsular release on 12/23/24. She continues to make good progress in her PROM/ AROM but her strength remains unchanged from her last re-evaluation. She will benefit from continued skilled PT to continue making progress in her strength and ROM to be able to perform recreational activities without difficulty. Plan of Care Interventions Electrical Stimulation,Hot Pack/Cold Pack,Manual Therapy,Neuro Re-education,Patient/Caregiver Education,Therapeutic Activities,Therapeutic Exercise,Self-Care/Home Management PT Services Indicated Yes Treatment Frequency and 2x/week for 8 additional visits Duration These treatments will address the objective and functional deficits as defined above. The patient will be advanced safely and appropriately in order for the patient to progress towards his/her prior level of function. Additional exercises will be introduced and as well as a comprehensive home exercise program upon discharge, if needed, ?to ensure carryover of functional gains achieved in the clinic. This treatment plan has been reviewed and agreement upon by the patient.
--- NOTE | 2025-03-06 14:50 | PCPTNOTE ---
Cancelled session. Reports her yudyvus-xj-mvy might not make it through the night. Reports she will be here Tuesday.
== END 2025-03-10 23:59 | disposition home or self-care (01) ==
LOC: CHSPT 09:49
DX: M75.01 Adhesive capsulitis of right shoulder (principal)
CPT/HCPCS: 97014; 97110; 97112; 97140; 97161; 97530; G0283

== ENCOUNTER 2025-01-14 12:27 | Outpatient (CLI) | payer BC, SELFPAY ==
--- NOTE | ~2025-01-14 | MM_ITS ---
EXAMINATION: MM screening [facility] BI w [facility] HISTORY: Screening mammogram TECHNIQUE: Craniocaudal and mediolateral oblique 3-D tomosynthesis images were obtained and synthetic 2-D images were generated. CAD analysis was submitted and interpreted. COMPARISON: 01/11/2024, 02/10/2021, 06/12/2020 BREAST PARENCHYMAL COMPOSITION:Not Dense. There are scattered areas of fibroglandular density. FINDINGS: No suspicious mass, calcification, or architectural distortion are identified in either lamin ast to suggest malignancy. There has been no suspicious interval change. IMPRESSION: No mammographic evidence of malignancy. Recommend routine screening mammography in one year. BI-RADS Category 1: Negative Reviewed, dictated and finalized at location .
--- OUTSIDE RECORDS SUMMARY | 2025-01-14 14:21 | XMS_ITS | Encounter Summary ---
Author Organization [facility] Address [address] [place] [address] Care Team Providers Care Physician Office Secretary Name Role Phone Unavailable Primary Care Provider Unavailabl e Encounter Details Date Type Department Care Team (Late st Contact Info) Description 04/14/2019 Abstract SFL CONVERSION [address] [place] [address] , Generic Conversion, Social History Tobacco Use Types Packs/Day Years Used Date Smoking Tobacco: Never Assessed Comments Unknown Sex and Gender Information Value Date Recorded Sex Assigned at Not on file Legal Sex Female 11:09 PM ACADEMIC INTERVENTIONIST Gender Identity Not on file Sexual Orientation Not on file documented as of this encounter Plan of Treatment Not on file documented as of this encounter Visit Diagnoses Not on filedocumented in this encounter
--- OUTSIDE RECORDS SUMMARY | 2025-01-14 14:21 | XMS_ITS | Clinical Summary ---
Author Organization [facility] Address [address] [place] [id number] Care Team Providers Care Catering Chef Name Role Phone Sal Tran NP Primary Care Provider [phone] Allergies No known active allergies Medications metFORMIN (GLUCOPHAGE) 500 mg tablet Take 1 tablet (500 mg total) by mouth 2 (two) times a day with meals 03/05/2024 Active Zepbound 10 mg/0.5 mL pen injector Inject 0.5 mL (10 mg total) under the skin once a week 05/14/2024 Active hydroCHLOROthiaz vandana (HYDRODIURIL) 25 mg tablet Take 1 tablet (25 mg total) by mouth daily Active Active Problems Problem Noted Date Diagnosed Date PCOS (polycystic ovarian syndrome) 05/23/2024 Overview (05/23/2024): With insulin resistance RBBB 05/23/2024 Overview (05/23/2024): partial Hypertension 05/23/2024 MTHFR gene mutation 05/23/2024 Retinal venous tortuosity 05/23/2024 Visual disturbance 05/23/2024 Transient visual loss of both eyes 05/23/2024 Atypical chest pain 06/30/2021 Palpitations 06/30/2021 Family history of premature CAD 06/30/2021 Obesity (BMI 35.0-39.9 without comorbidity) 06/08 Glucose intolerance (impaired glucose tolerance) 06/30/2021 Encounters Date Type Department Care Team Description 11/13/2024 Telephone [facility] Ophthalmology [address] [facility] [address] [place] [address] Isidro Allison MD from Last 3 Months Surgical History Surgery Date Site/Laterality Comments HYSTERECTOMY 11/07/2009 - 11/06/2010 OVARIAN CYST REMOVAL CHOLECYSTECTOMY Medical History Medical History Date Comments Hypertension Hypertension Hx Other Medical Diabetes Type I I Adiposity Obesity Wears partial dentures Gallstones Anxiety and depression MTHFR mutation PCOS (polycystic ovarian syndrome) Insulin resistance Family History Medical History Relation Name Comments Hypertension Brother 1 Hypertension Brother 2 Heart attack Father COPD Mother Stroke Mother Hypertension Sister PFO Sister Relation Name Status Comments Brother 1 Alive Brother 2 Alive Father (Age 56) Mother Alive Sister Alive Social History Tobacco Use Types Packs/Day Years Used Date Smoking Tobacco: Never Smokeless Tobacco: Never Alcohol Use Standard Drinks/Week Comments No 0 (1 standard drink = 0.6 oz pur e alcohol) Comments Unknown Sex and Gender Information Value Date Recorded Sex Assigned at Not on file Legal Sex Female 3:09 AM OB NURSE Gender Identity Not on file Sexual Orientation Not on file Obstetrics History Last Filed Vital Signs Vital Sign Reading Time Taken Comments Blood Pressure 100/64 12/16/2021 8:09 AM OB NURSE Pulse 93 12/16/2021 8:09 AM OB NURSE Temperature - - Respiratory Rate - - Oxygen Saturation 97% 12/16/2021 8:09 AM OB NURSE Inhaled Oxygen Concentration - - Weight 96.5 kg (212 lb 11.2 oz) 12/16/2021 8:09 AM OB NURSE Height 165.1 cm (5' 5 ) 12/16/2021 8:09 AM OB NURSE Body Mass Index 35.4 12/16/2021 8:09 AM OB NURSE Plan of Treatment Health Maintenance Due Date Last Done Comments Breast Cancer Screening-Mammogram 1979 Colon Cancer Screening-Colonoscopy 1979 Depression Screening 1979 Hepatitis C Screening 1979 DTaP/Tdap/Td Vaccine (1 - Tdap) 1990 Hepatitis B Screening 1997 Regular Well Visit/Exam 18-64 1997 Covid-19 Vaccine (2023-2 5 season) 2024 12/11/2020, 11/13/2020 Influenza Vaccine (#1) 2024 HPV Vaccines Aged Out No longer eligi ble based on patient's age to complete this topic Pneumococcal vaccine <65 Aged Out No longer eligible based on patient's age to complete this topic Insurance [facility] CHOICE PLUS [employer] Care Teams Catering Chef Relationship Specialty Start Date End Date Sal Tran NP [address] [place] [address] PCP - General Family Medicine 05/23/24
--- OUTSIDE RECORDS SUMMARY | 2025-01-14 14:21 | XMS_ITS | Referral Summary ---
Author Organization [facility] Address [address] [place] [id number] Care Team Providers Care Knife Grinder Name Role Phone Sal Tran NP Primary Care Provider [phone] Encounters Date Type Department Care Team Description 11/13/2024 Telephone [facility] Ophthalmology [address] [facility] [address] [place] [address] Isidro Allison MD from Last 3 Months Allergies No known active allergies Medications metFORMIN [...] 06/08 Glucose intolerance (impaired glucose tolerance) 06/30/2021 Social History Tobacco Use Types Packs/Day Years Used Date Smoking Tobacco: Never Smokeless Tobacco: Never Alcohol Use Standard Drinks/Week Comments No 0 (1 standard drink = 0.6 oz pur e alcohol) Comments Unknown Sex and Gender Information Value Date Recorded Sex Assigned at Not on file Legal Sex Female 3:09 AM ROOFER METAL Gender Identity Not on file Sexual Orientation Not on file Last Filed Vital Signs Vital Sign Reading Time Taken Comments Blood Pressure 100/64 12/16/2021 8:09 AM ROOFER METAL Pulse 93 12/16/2021 8:09 AM ROOFER METAL Temperature - - Respiratory Rate - - Oxygen Saturation 97% 12/16/2021 8:09 AM ROOFER METAL Inhaled Oxygen Concentration - - Weight 96.5 kg (212 lb 11.2 oz) 12/16/2021 8:09 AM ROOFER METAL Height 165.1 cm (5' 5 ) 12/16/2021 8:09 AM ROOFER METAL Body Mass Index 35.4 12/16/2021 8:09 AM ROOFER METAL Plan of Treatment Not on file Insurance [facility] CHOICE PLUS [address] [place] Care Teams Knife Grinder Relationship Specialty Start Date End Date Sal Tran NP [address] [place] [address] PCP - General Family Medicine 05/23/24
--- OUTSIDE RECORDS SUMMARY | 2025-01-14 14:21 | XMS_ITS | Clinical Summary ---
Author Organization [facility] Address [address] [place] [address] Care Team Providers Care Engineering Test Mechanic Name Role Phone Ze Menendez MD Primary Care Provider Source Comments [facility],non-owned Affiliates and Associated Physician Practices is amultiple site organization consisting of ambulatory clinics and hospital sitesin [place], [place] and [place]. This disclosure is being madepursuant to the Care Everywhere program and may not contain all information available regarding this patient. Last updated 18.[facility] Allergies No known active allergies Medications * Be aware that medications may not be up to date on this document. Alwaysverify current medications with the patient. Medication Sig Dispensed Refills Start Date End Date Status metFORMIN (GLUCOPHAGE) 500 MG tablet Take 500 mg by mouth 2 times daily with morning and evening meal Active Social History Tobacco Use Types Packs/Day Years Used Date Smoking Tobacco: Never Alcohol Use Standard Drinks/Week Comments No 0 (1 standard drink = 0.6 oz pur e alcohol) Sex and Gender Information Value Date Recorded Sex Assigned at Not on file Gender Identity Not on file Sexual Orientation Not on file Last Filed Vital Signs Vital Sign Reading Time Taken Comments Blood Pressure 127/84 11/29/2015 3:00 AM CLERK GUIDE Pulse 99 11/29/2015 5:26 AM CLERK GUIDE Temperature 36.9 C (98.5 F) 11/29/2015 1:04 AM CLERK GUIDE Respiratory Rate 18 11/29/2015 1:04 AM CLERK GUIDE Oxygen Saturation 96% 11/29/2015 5:26 AM CLERK GUIDE Inhaled Oxygen Concentration - - Weight 97.5 kg (215 lb) 11/29/2015 1:04 AM CLERK GUIDE Height 165.1 cm (5' 5 ) 11/29/2015 1:04 AM CLERK GUIDE Body Mass Index 35.78 11/29/2015 1:04 AM CLERK GUIDE Plan of Treatment Health Maintenance Due Date Last Done Comments COLOGUARD (AGES 45-75) - COL ON CA SCREENING 1979 COLON MONITORING 1979 COLONOSCOPY - COLON CA SCREENING 1979 CT COLONOGRAPHY - COLON CA SCREENING 1979 Colorectal Cancer Screening 1979 FIT - COLON CA SCREENING 1979 FLEX SIG - COLON CA SCREENING 1979 LIPID TESTING 1979 MAMMOGRAM 1979 PAP SMEAR 1979 HIV SCREENING 1994 HEPATITIS C SCREENING 08/12/1997 DTAP/TDAP/TD VACCINES (1 - Tdap) 1998 HEPATITIS B VACCINE (1 of 3 - 19+ 3-dose series) 1998 COVID-19 VACCINE (1 - 2023-2 5 season) 2024 INFLUENZA VACCINE (#1) 2024 DEPRESSION SCREENING 11/07/2024 ZOSTER VACCINE (1 of 2) 2029 HIB VACCINE Aged Out No longer eligi ble based on patient's age to complete this topic HPV VACCINE Aged Out No longer eligi ble based on patient's age to complete this topic MENINGOCOCCAL (Group B) VACCINE Aged Out No longer eligible based on patient's age to complete this topic MENINGOCOCCAL VACCINE Aged Out No anand yessi eligible based on patient's age to complete this topic PNEUMOCOCCAL VACCINE Aged Out No long er eligible based on patient's age to complete this topic Care Teams Engineering Test Mechanic Relationship Specialty Start Date End Date Ze Menendez MD [address] [place] [id number] PCP - General Family Medicine 11/29/15
--- OUTSIDE RECORDS SUMMARY | 2025-01-14 14:21 | XMS_ITS | Referral Summary ---
Author Organization [facility] Address [address] [place] [address] Care Team Providers Care Lead Technical Architect Name Role Phone Ze Menendez MD Primary Care Provider [phone] Source Comments [facility],non-owned Affiliates and Associated Physician Practices is amultiple site organization consisting of ambulatory clinics and hospital sitesin [place], [place], [place] and [place]. This disclosure is being madepursuant to the Care Everywhere program and may not contain all information available regarding this patient. Last updated 18.[facility] Allergies No known active allergies Medications * [...] Comments Blood Pressure 127/84 11/29/2015 3:00 AM BASTING MARKER Pulse 99 11/29/2015 5:26 AM BASTING MARKER Temperature 36.9 C (98.5 F) 11/29/2015 1:04 AM BASTING MARKER Respiratory Rate 18 11/29/2015 1:04 AM BASTING MARKER Oxygen Saturation 96% 11/29/2015 5:26 AM BASTING MARKER Inhaled Oxygen Concentration - - Weight 97.5 kg (215 lb) 11/29/2015 1:04 AM BASTING MARKER Height 165.1 cm (5' 5 ) 11/29/2015 1:04 AM BASTING MARKER Body Mass Index 35.78 11/29/2015 1:04 AM BASTING MARKER Plan of Treatment Not on file Care Teams Lead Technical Architect Relationship Specialty Start Date End Date Ze Menendez MD [address] [place] [address] [phone] PCP - General Family Medicine 11/29/15
--- OUTSIDE RECORDS SUMMARY | 2025-01-14 14:21 | XMS_ITS | Encounter Summary ---
Author Organization [facility] Address [address] [place] [address] Care Team Providers Care Metal Moulder'S Assistant Name Role Phone Unavailable Primary Care Provider Unavailabl e Encounter Details Date Type Department Care Team (Late Contact Info) Description 01/12/2025 External Device Data STL ABSTRACTION Provider, Abstract NO ADDRESS ON FILE Social History Tobacco Use Types Packs/Day Years Used Date Smoking Tobacco: Never Alcohol Use Standard Drinks/Week Comments Never 0 (1 standard drink = 0.6 oz pur e alcohol) Feeling Safe Answer Date Recorded Are you in a relationship wi th someone who hurts you emotionally and/or physically? 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
--- OUTSIDE RECORDS SUMMARY | 2025-01-14 14:21 | XMS_ITS | Clinical Summary ---
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 Gender Identity Not on file Sexual Orientation Not on file Plan of Treatment Health Maintenance Due Date Last Done Comments Cervical Cancer Screening Pa p Smear (Age 30 to 64) Every 3 Years 1979 Colorectal Cancer Screening Colonoscopy (10 Years) 1979 Annual Physical 1982 Hepatitis C 1997 DTaP, Tdap and Td Vaccines ( 1 - Tdap) 1998 Hepatitis B Vaccines (1 of 3 - 19+ 3-dose series) 1998 Cervical Cancer Screening Pa p with HPV Testing (Age 30 to 64) Every 5 Years 2009 Cervical Cancer Screening with HPV 2009 Mammogram Screening 2019 COVID-19 Vaccine (2023-2 5 season) 2024 Influenza Adult (#1) 2024 HPV Vaccines Aged Out No longer eligi ble based on patient's age to complete this topic Meningococcal B Vaccine Aged Out No l onger eligible based on patient's age to complete this topic Meningococcal Vaccine Aged Out No anand yessi eligible based on patient's age to complete this topic Pneumococcal Vaccine: Pediat rics (0 to 5 Years) and At-Risk Patients (6 to 64 Years) Aged Out No longer eligible b ased on patient's age to complete this topic RSV Immunizations Under 20 Months Aged Out No longer eligible based on patient's age to complete this topic
--- OUTSIDE RECORDS SUMMARY | 2025-01-14 14:21 | XMS_ITS | Clinical Summary ---
Author Organization [employer] [facility] Address [address] [place] [address] Care Team Providers Care Computer Tech Name Role Phone Unavailable Primary Care Provider Unavailabl e Allergies No known active allergies Medications tirzepatide, weight loss, (Zepbound) 10 mg/0.5 mL Pen Injector Inject 7.5 mg by subcutaneous injection. 4 Active metFORMIN (GLUCOPHAGE) 500 mg tablet Take 500 mg by mouth 2 times daily with meals. Active multivitamin (DAILY-MAYE) tablet Take 1 Tablet by mouth daily. Active oxyCODONE (ROXICODONE) 5 mg tabletIndicatio ns:Adhesive capsulitis of right shoulder Take 1 Tablet (5 mg) by mouth every 4 hours as needed for Pain. Max Daily Amount: 30 mg 18 Tablet 12/07/2024 11:08 AM [facility] [employer] [employer] 5 Active methylPREDNISol one (MEDROL DOSPACK) 4 mg Tablets, Dose Pack Please take as directed on Pack 21 Tablet 12/07/2024 11:08 AM [facility] [employer] [employer] 5 Active docusate sodium (Dulcolax Stool Softener, dss,) 100 mg capsule Take 1 Capsule (100 mg) by mouth 2 times daily. 30 Capsule 12/07/2024 11:08 AM [facility] [employer] [employer] 5 Active ondansetron (ZOFRAN ODT) 4 mg Tablet, Rapid Dissolve Dissolve 1 Tablet (4 mg) on top of tongue, then swallow with saliva every 8 hours as needed for Nausea/Vomiting. 30 Tablet 12/07/2024 11:08 AM [facility] [employer]IPMENT 5 Active Active Problems Problem Noted Date Diagnosed Date Adhesive capsulitis of right shoulder 11/19/2024 Encounters Date Type Department Care Team Description 01/12/2025 External Device Data STL ABSTRACTION Provider, Abstract 01/09/2025 External Device Data STL ABSTRACTION Provider, Abstract 12/26/2024 External Device Data STL ABSTRACTION Provider, Abstract 12/24/2024 2:00 PM [employer] [employer]QUIPMENT Office Visit [facility] [address] [place] [phone] Arcadio Epstein PA-C S/P shoulder surgery (Primary Dx) 12/18/2024 External Device Data STL ABSTRACTION Provider, Abstract 12/12/2024 Orders Only [facility] Orthopedics - [facility] [address] [place] [address] Nader Brian MD 12/10/2024 Telephone [facility] - [facility] [address] [place] [address] Nader Brian MD Returning to work after surgery 12/07/2024 8:15 AM [employer] [employer]AT[employer] EQUIPMENT - 12/07/2024 9:15 AM [facility] [employer]QUIPMENT [facility] Operating Room [address] [place] [address] Nader Brian MD Right shoulder arthroscopic capsular release 12/07/2024 8:03 AM [facility] [employer]MENT Anesthesia Event [facility] Operating Room [address] [place] [address] Brody Sinclair MD [place], [place], [place] 12/07/2024 6:34 AM [facility] [employer] EQUIPMENT - 12/07/2024 11:52 AM CLE[facility]AT[facility] EQUIPMENT Hospital [facility]counter [facility] Pre Procedure Phase II [address] [place] [address] Nader Brian MD Adhesive capsulitis of right shoulder Discharge Disposition: Home or Self Care 12/06/2024 Orders Only [facility] [address] [place] [address] Mary Cohen PA-C Adhesive capsulitis of right shoulder (Primary Dx) 12/05/2024 External Device Data STL ABSTRACTION Provider, Abstract 11/29/2024 External Device Data STL ABSTRACTION Provider, Abstract 11/26/2024 Prep for Surgery [facility] [address] [facility] [address] [place] [phone] Nader Brian MD Adhesive capsulitis of right shoulder (Primary Dx) 11/19/2024 11:00 AM [employer]MENT Office Visit [facility] Orthopedics [facility] [address] [place] [phone] Nader Brian MD Adhesive capsulitis of right shoulder (Primary Dx) 11/19/2024 Chart Note [facility] Orthoped[facility] [address] [place] [phone] Nader Brian MD 10/17/2024 1:00 PM [facility] [employer]MENT Procedure visit [facility] [address] [place] [phone] Mc Espinoza MD Adhesive capsulitis of right shoulder (Primary Dx) from Last 3 Months Social History Tobacco Use Types Packs/Day Years Used Date Smoking Tobacco: Never Tobacco Cessation:Counseling Given: Not Answered Alcohol Use Standard Drinks/Week Comments Never 0 (1 standard drink = 0.6 oz pur e alcohol) Feeling Safe Answer Date Recorded Are you in a relationship wi th someone who hurts you emotionally and/or physically? 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 EQUIPMENT Gender Identity Not on file Sexual Orientation Not on file Last Filed Vital Signs Vital Sign Reading Time Taken Comments Blood Pressure 112/80 12/07/2024 11:02 AM CLE[employer]ER LABORATORY EQUIPMENT Pulse 85 12/07/2024 11:02 AM [employer] EQUIPMENT Temperature 36.4 C (97.5 F) 12/07/2024 10:32 AM [facility] [employer]ORATORY EQUIPMENT Respiratory Rate 13 12/07/2024 10:20 AM CLE[employer]ER LABORATORY EQUIPMENT Oxygen Saturation 99% 12/07/2024 11:02 AM [facility] [employer]ORATORY EQUIPMENT Inhaled Oxygen Concentration - - Weight 64.4 kg (142 lb) 12/07/2024 6:46 AM [facility] [employer]AT[employer] EQUIPMENT Height 165.1 cm (5' 5 ) 12/07/2024 6:46 AM CLE[employer]ER LABORATORY EQUIPMENT Body Mass Index 23.63 12/07/2024 6:46 AM CLE[employer]ER LABORATORY EQUIPMENT Plan of Treatment Upcoming Encounters Date Type Department Care Team (Late st Contact Info) Description 01/28/2025 2:20 PM CDT Office Visit [facility] [address] [facility] [address] [place] [address] Arcadio Epstein PA-C [id number] [facility] [address] [place] [address] Health Maintenance Due Date Last Done Comments DTAP/TDAP/TD VACCINES (1 - Tdap) 1998 HEPATITIS B VACCINES (1 of 3 - 19+ 3-dose series) 1998 CERVICAL CANCER SCREENING 2009 BREAST CANCER SCREENING 2019 INFLUENZA VACCINE (#1) 2024 , 08/19/2022, 08/21/2021 COVID-19 Vaccine (2023-2 5 season) 2024 11/04/2021, 12/11/2020, 11/13/2020 COLORECTAL SCREENING 2024 Colorectal Cancer Screening 2024 FIT-DNA Q 3 years 2024 FIT/FOBT Q 1 year 2024 Flex Sig/CT Colonography Q 5 years 2024 HPV VACCINES Aged Out No longer eligi ble based on patient's age to complete this topic Procedures Procedure Name Priority Date/Time Associated Diagnosis Comments PROCEDURE PHOTOGRAPHS 12/12/2024 3:57 PM CLE[employer]ER [employer]ATORY EQUIPMENT PROCEDURE PHOTOGRAPHS Routine 12/07/2024 10:30 AM CLEANER LABORATORY EQUIPMENT TN ANESTHESIA BLOCK PB PLACEHOLDER CHARGE Routine 12/07/2024 8:18 AM CLE[employer]ER LAB[employer]ATORY EQUIPMENT TN SURGICAL ARTHROSCOPY SHOULDER XTNSV DBRDMT 3+ 12/07/2024 8:15 AM [employer] EQUIPMENT Adhesive capsulitis of right shoulder Special Needs ANES GENERAL WITH INTERSCALENE BLOCK; DR FARRELL 30MIN; BEACH CHAIR WITH SPYDER; 90 DEGREE WAND; ULTRASLING III; ICE MACHINE; NAILA EPSTEIN AND MARY COHEN TO ASSIST TN ANES INSERT ENDOTRACHEAL AIRWAY Routine 12/07/2024 8:07 AM [facility] [employer]AT[employer] EQUIPMENT BASIC METABOLIC PANEL Routine 12/07/2024 6:49 AM [facility] [employer]ATORY EQUIPMENT from Last 3 Months Results * PROCEDURE PHOTOGRAPHS (12/12/2024 3:57 PM CLE[facility] [employer]ATORY EQUIPMENT) us Provider Scanning PROCEDURE/MINOR SURGICAL ORDER KELSEA Final Result * PROCEDURE PHOTOGRAPHS (12/07/2024 10:30 AM CLE[facility] LAB[employer]ATORY EQUIPMENT) us Nader Brian MD PROCEDURE/MINOR SURGICAL ORDER KELSEA Final Result [facility] - [facility]# [id number] [facility] [address] [place] [address] * TN ANESTHESIA BLOCK PB PLACEHOLDER CHARGE (12/07/2024 8:18 AM CLE[employer] [employer] EQUIPMENT) Narrative Dane Gillis MD - 12/07/2024 8:18 AM CLE[employer]ER LABORATORY EQUIPMENT Dane Gillis MD 12/07/2024 8:19 AM Patient location during procedure: Pre-op Start time: 12/07/2024 8:00 AM Reason for block: at surgeon's request Staffing Performed: Anesthesiologist (/) Authorized by: Dane Gillis MD Performed by: Dane Gillis MD Pharmacy Technician Infusion: Magalis Zhang RN Preanesthetic Checklist Completed: patient identified, IV checked, site marked, risks and benefits discussed, surgical consent, monitors and equipment checked, pre-op evaluation and timeout performed Hand hygiene performed prior to procedure Patient was prepped and draped in usual sterile fashion Mask worn Patient position: Sitting Prep: ChloraPrep Patient monitoring: EKG, Non-invasive blood pressure, ETCO2 and Heart rate Block Region: Upper Extremity Block Block Type: Interscalene Laterality: Right Finger Identification: ultrasound guided Skin Infiltration: Lidocaine 1% Local injected: Bupivacaine 0.5% us Dane Gillis MD PROCEDURE/MINOR SURGICAL ORD ERABLES Final Result * TN ANES INSERT ENDOTRACHEAL AIRWAY (12/07/2024 8:07 AM CLE[employer]ER [employer]ATORY EQUIPMENT) Narrative Varinder Alston CRNA - 12/07/2024 8:07 AM [facility] [employer] EQUIPMENT Varinder Alston CRNA 12/07/2024 8:27 AM Airway Date/Time: 12/07/2024 8:07 AM Location: OR Plan: elective intubation Patient Identity Confirmed by: Verbally with patient and armband Airway: not difficult Staffing Performed: Student NA/AA Authorized by: Brody Sinclair MD Performed by: Varinder Alston CRNA Indications and Patient Condition: Indications for Airway Management: Anesthesia Sedation Level: general anesthesia Preoxygenated: yes Patient Position: Sniffing Mask Difficulty Assessment: 1 - vent by mask Plan to extubate at end of case: Yes Final Airway Details: Final Airway Type: Endotracheal airway ETT Cuffed: Yes Cuff Volume (mL): 21 Technique Used for Successful ETT Placement: Direct laryngoscopy Devices/Methods Used in Placement: Intubating stylet Blade Type: curved blade and straight blade Blade Size: 2 ETT Size (mm): 7.0 Measured from: Teeth Tube secured with: Tape Placement Verified by: auscultation, end tidal CO2 and chest rise Cormack-Lehane Classification: Grade I - full view of glottis Number of Attempts at Approach: 1 Additional Procedure Information: atraumatic and dentition unchanged Brody Sinclair MD PROCEDURE/MINOR SURGICAL ORDERAB LES Final Result * BASIC METABOLIC PANEL (12/07/2024 6:49 AM CLE[employer] [employer] EQUIPMENT) SODIUM 139 136 - 145 mmol/L 12/07/2024 7:57 AM CLEANER LABORATORY EQUIPMENT [facility] POTASSIUM 3.8 3.4 - 5.1 mmol/L 12/07/2024 7:57 AM [facility] CHLORIDE 105 98 - 107 mmol/L 12/07/2024 7:57 AM [facility]MENT [facility] CO2 23 22 - 29 mmol/L 12/07/2024 7:57 AM [facility] LABORATORY EQUIPMENT [facility] - [facility] CALCIUM 9.4 8.6 - 10.4 mg/dL 12/07/2024 7:57 AM [facility]QUIPMENT [facility] BUN 16 6 - 20 mg/dL 12/07/2024 7:57 AM [facility]QUIPMENT [facility] CREATININE 0.83 0.51 - 0.95 mg/dL 12/07/2024 7:57 AM [facility] GLUCOSE 85 74 - 99 mg/dL 12/07/2024 7:57 AM [facility] GFR >60 >=60 mL/min/1.7 3 sq meter 12/07/2024 7:57 AM [facility] Comment:eGFR calculated with 2020 CKD-EPI equation. Vegetarian diet, extremely high or low muscle mass, and may affect results. Cystatin C with Glomerular Filtration Rate is a suitable alternative for these patients. ANION GAP 11 8 - 16 mmol/L 12/07/2024 7:57 AM [facility] Blood Venipuncture / Unknown 12/07/2024 6:49 AM [facility] [facility] 12/07/2024 7:26 AM [facility]IP[facility] Benita Romeo MD CHEMISTRY ORDERABLES Final Resu lt [facility] CLIA# [id number] [place] [address] from Last 3 Months Insurance [facility] BLUE ACCESS/TRUE BLUE PPO RX [employer] Commercial Advance Directives For more information, please contact: [phone] * Full Code (Latest Code Status on File) Date Activated Date Inactivated Comments 12/07/2024 6:46 AM 12/07/2024 1:52 PM
--- OUTSIDE RECORDS SUMMARY | 2025-01-14 14:21 | XMS_ITS ---
Author Organization Unknown Address [address] [place] [phone] Phone Care Team Providers Care Tools Administrator Name Role Phone NO PCP Attending Unavailable INFECTION PREVENTION Primary Unavailable Immunization Immunization Date Status Additional Notes Code Code System Influenza, split virus, quadrivalent, PF 08/21/2021 Completed 150 CVX Influenza, split virus, quadrivalent, PF 08/19/2022 Completed 150 CVX Influenza, split virus, quadrivalent, PF 08/07/2023 Completed 150 CVX COVID-19, mRNA, LNP-S, PF, 1 00 mcg/0.5mL dose or 50 mcg/0.25mL dose 11/13/2020 Completed 207 CVX COVID-19, mRNA, LNP-S, PF, 1 00 mcg/0.5mL dose or 50 mcg/0.25mL dose 12/11/2020 Completed 207 CVX COVID-19, mRNA, LNP-S, PF, 1 00 mcg/0.5mL dose or 50 mcg/0.25mL dose 11/04/2021 Completed 207 CVX Results SARS COV2 PCR - Collect Date /Time: 04/16/2024 11:45 [facility] ID: [id number] [address] [place], [place], [id number] LOINC: 37666-1 Test Value Unit Reference Range Code Code System Flag SARS COV2 PCR NEGATIVE 47199-9 LOINC SENT TO [facility] RN? YES A Social History Type Status Start Date End Date Code Code Syst em Smoking History Never smoker (Never Smoked) 138753098 SNOMED CT Sex Female Hospital Discharge Instructions Should you have any questions prior to discharge, please contact a member of your healthcare team. If you have left the hospital and have any questions, please contact your primary care physician. Reason For Referral No Data Found Plan of Treatment No Data Found Personal Care Team Section Performer Name Performer Role Active Date Inactive Da te
--- OUTSIDE RECORDS SUMMARY | 2025-01-14 14:22 | XMS_ITS ---
Author Organization Unknown Address [address] [place], [place] [phone] Phone Care Team Providers Care Box Maker Wood Name Role Phone NO PCP Attending Unavailable [...] dose 11/04/2021 Completed 207 CVX Results SARS ANTIGEN RAPID - Collect Date/Time: 09/26/2023 11:45 [facility] ID: [id number] [address] [place] [address], [id number] LOINC: 21932-5 Test Value Unit Reference Range Code Code System Flag SARS ANTIGEN RAPID NEGATIVE 11089-0 LOINC SEND TO [facility]? YES A SARS COV2 PCR - Collect Date /Time: 09/26/2023 11:45 [facility] ID: [id number] [address] [place] [address], [place], [id number] LOINC: 18087-4 Test Value Unit Reference Range Code Code System Flag SARS COV2 PCR NEGATIVE 22536-0 LOINC SENT TO [facility] RN? YES A Social History Type Status Start Date End Date Code Code Syst em Smoking History Never smoker (Never Smoked) 996133421 SNOMED CT Sex Female Hospital Discharge Instructions [...]
--- OUTSIDE RECORDS SUMMARY | 2025-01-14 14:22 | XMS_ITS | Patient Health Summary ---
Author Organization [facility] Address [address] [place] [address] Care Team Providers Care Social Work Faculty Member Name Role Phone Ze Menendez MD Primary Care Provider [phone] Note from [facility] [place],non-owned Affiliates and Associated Physician Practices is amultiple site organization consisting of ambulatory clinics and hospital sitesin [place], [place], [place] and [place]. This disclosure is being madepursuant to the Care Everywhere program and may not contain all information available regarding this patient. Last updated 18.[facility] Allergies No known active allergies Medications * Be aware that medications may not be up to date on this document. Alwaysverify current medications with the patient. * metFORMIN (GLUCOPHAGE) 500 MG tablet Take 500 mg by mouth 2 times daily with morning and evening meal Social History Tobacco Use Types Packs/Day Years [...] Comments Blood Pressure 127/84 11/29/2015 3:00 AM FUEL HOUSE ATTENDANT Pulse 99 11/29/2015 5:26 AM FUEL HOUSE ATTENDANT Temperature 36.9 C (98.5 F) 11/29/2015 1:04 AM FUEL HOUSE ATTENDANT Respiratory Rate 18 11/29/2015 1:04 AM FUEL HOUSE ATTENDANT Oxygen Saturation 96% 11/29/2015 5:26 AM FUEL HOUSE ATTENDANT Inhaled Oxygen Concentration - - Weight 97.5 kg (215 lb) 11/29/2015 1:04 AM FUEL HOUSE ATTENDANT Height 165.1 cm (5' 5 ) 11/29/2015 1:04 AM FUEL HOUSE ATTENDANT Body Mass Index 35.78 11/29/2015 1:04 AM FUEL HOUSE ATTENDANT Procedures * US TRANSVAGINAL NON OB(Performed 11/29/2015) * US PELVIS COMPLETE(Performed 11/29/2015) * HCG URINE QUALITATIVE - POCT (IP) [facility](Performed 11/29/2015) * URINALYSIS REFLEX TO MICROSCOPIC NO CULTURE(Performed 11/29/2015) * CT ABDOMEN PELVIS W CONTRAST(Performed 11/29/2015) * BASIC METABOLIC PANEL (CALCIUM TOTAL)(Performed 11/29/2015) * LIPASE BLOOD(Performed 11/29/2015) * CBC W AUTO DIFFERENTIAL(Performed 11/29/2015) * CBC W AUTO DIFFERENTIAL(Performed 11/29/2015) Results * US TRANSVAGINAL NON OB (11/29/2015 6:49 AM FUEL HOUSE ATTENDANT) Anatomical Region Laterality Modality Abdomen Other Impressions 12/01/2015 3:02 PM FUEL HOUSE ATTENDANT IMPRESSION: Simple cyst of the right ovary measuring 7.0 in maximum diameter. Recommend follow-up ultrasound in 6-12 weeks for further evaluation. Dictated by Hans Lucas DO (resident). This report was approved by Hans Lucas on 12/01/2015 3:01 PM . I, Dr. LEVI POND M.D. have personally reviewed and interpreted this examination/study. This report was electronically signed by LEVI POND M.D. on 12/01/2015 3:02 PM . Narrative 12/01/2015 3:02 PM FUEL HOUSE ATTENDANT EXAMINATION: 1. Transabdominal pelvic sonogram 2. Transvaginal pelvic sonogram HISTORY: 34-year-old female with pelvic pain, history of hysterectomy. COMPARISON: Comparison is made with a CT dated 11/29/2015. FINDINGS: Transabdominal: The uterus is surgically absent. Right ovary: 6.3 x 7.4 x 6.8 cm Left ovary: 2.2 x 1.4 x 2.0 cm Transvaginal: An anechoic simple cyst is seen of the right ovary measuring 5.3 x 7.0 x 5.5 cm. Otherwise, the ovaries appear normal for the patient's age. There is no evidence of ovarian torsion. The uterus is surgically absent. No free fluid is present in the cul-de-sac. Procedure Note Provider, MD Arnaldo - 02/04/2018 EXAMINATION: 1. Transabdominal pelvic sonogram 2. Transvaginal pelvic sonogram HISTORY: 34-year-old female with pelvic pain, history of hysterectomy. COMPARISON: Comparison is made with a CT dated 11/29/2015. FINDINGS: Transabdominal: The uterus is surgically absent. Right ovary: 6.3 x 7.4 x 6.8 cm Left ovary: 2.2 x 1.4 x 2.0 cm Transvaginal: An anechoic simple cyst is seen of the right ovary measuring 5.3 x 7.0 x5.5 cm. Otherwise, the ovaries appear normal for the patient's age. Thereis no evidence of ovarian torsion. The uterus is surgically absent. No free fluid is present in [id number]. IMPRESSION IMPRESSION: Simple cyst of the right ovary measuring 7.0 in maximum diameter.Recommend follow-up ultrasound in 6-12 weeks for further evaluation. Dictated by Hans Lucas DO (resident). This report was approved by Hans Lucas on 12/01/2015 3:[address] LEVI Gilbert M.D. have personally reviewed and interpreted thisexamination/study. This report was electronically signed by LEVI POND M.D. on 12/01/20153:02 PM . Aleksander Yan MD US ORDERABLES * US PELVIS COMPLETE (11/29/2015 6:49 AM FUEL HOUSE ATTENDANT) Anatomical Region Laterality Modality Pelvis Other Impressions 12/01/2015 3:02 PM FUEL HOUSE ATTENDANT IMPRESSION: Simple cyst of the right ovary measuring 7.0 in maximum diameter. Recommend follow-up ultrasound in 6-12 weeks for further evaluation. Dictated by Hans Lucas DO (resident). This report was approved by Hans Lucas on 12/01/2015 3:[address] LEVI Gilbert M.D. have personally reviewed and interpreted this examination/study. This report was electronically signed by LEVI POND M.D. on 12/01/2015 3:02 PM . Narrative 12/01/2015 3:02 PM FUEL HOUSE ATTENDANT EXAMINATION: 1. Transabdominal pelvic sonogram 2. Transvaginal pelvic sonogram HISTORY: 34-year-old female with pelvic pain, history of hysterectomy. COMPARISON: Comparison is made with a CT dated 11/29/2015. FINDINGS: Transabdominal: The uterus is surgically absent. Right ovary: 6.3 x 7.4 x 6.8 cm Left ovary: 2.2 x 1.4 x 2.0 cm Transvaginal: An anechoic simple cyst is seen of the right ovary measuring 5.3 x 7.0 x 5.5 cm. Otherwise, the ovaries appear normal for the patient's age. There is no evidence of ovarian torsion. The uterus is surgically absent. No free fluid is present in the cul-de-sac. Procedure Note Provider, MD Arnaldo - 02/04/2018 EXAMINATION: 1. Transabdominal pelvic sonogram 2. Transvaginal pelvic sonogram HISTORY: 34-year-old female with pelvic pain, history of hysterectomy. COMPARISON: Comparison is made with a CT dated 11/29/2015. FINDINGS: Transabdominal: The uterus is surgically absent. Right ovary: 6.3 x 7.4 x 6.8 cm Left ovary: 2.2 x 1.4 x 2.0 cm Transvaginal: An anechoic simple cyst is seen of the right ovary measuring 5.3 x 7.0 x5.5 cm. Otherwise, the ovaries appear normal for the patient's age. Thereis no evidence of ovarian torsion. The uterus is surgically absent. No free fluid is present in [id number]. IMPRESSION IMPRESSION: Simple cyst of the right ovary measuring 7.0 in maximum diameter.Recommend follow-up ultrasound in 6-12 weeks for further evaluation. Dictated by Hans Lucas DO (resident). This report was approved by Hans Lucas on 12/01/2015 3:01 PM . I, Dr. LEVI POND M.D. have personally reviewed and interpreted thisexamination/study. This report was electronically signed by LEVI POND M.D. on 12/01/20153:02 PM . Aleksander Yan MD US ORDERABLES * HCG URINE QUALITATIVE - POCT (IP) [facility] (11/29/2015 4:06 AM FUEL HOUSE ATTENDANT) Test Urine negative [facility] Urine specimen (specimen) 11/29/2015 4:06 AM FUEL HOUSE ATTENDANT Aleksander Yan MD LAB - POINT OF CARE ORDERABLES Performing Organization Address [facility] Co de Phone Number [facility] * (ABNORMAL) URINALYSIS REFLEX TO MICROSCOPIC NO CULTURE (11/29/2015 4:00 AM FUEL HOUSE ATTENDANT) Color UA Yellow Straw, Yellow, Colorless, Light Yellow [facility] Clarity UA Clear Clear [facility] Specific [place] UA >1.040(H) 1.001 - 1.030 [facility] pH UA 6.0 5.0 - 8.0 [facility] Protein UA Negative <=20 mg/dL [facility] Glucose UA Negative Negative mg/dL [facility] Ketone UA Trace(A) Negative mg/dL [facility] Bilirubin UA Negative Negative mg/dL [facility] Blood UA Negative Negative [facility] Nitrite UA Negative Negative [facility] Leukocyte Esterase Negative Negative [facility] Urobilinogen UA <2.0 <2.0 mg/dL [facility] RBC UA 3 0 - 8 /HPF [facility] WBC UA 2 0 - 2 /HPF [facility] Bacteria UA Few(A) Rare, Occasional, None /HPF [facility] Squamous Epithelial Cells UA 2(H) 0 - 1 /HPF [facility] Mucus UA Occasional( A) None /LPF [facility] Urine specimen (specimen) 11/29/2015 4:00 AM FUEL HOUSE ATTENDANT 11/29/2015 4:03 AM FUEL HOUSE ATTENDANT Narrative [facility] - 11/29/2015 4:14 AM FUEL HOUSE ATTENDANT Specific gravity results confirmed by refractometer. Aleksander Yan MD LAB - URINALYSIS ORD ERABLES [facility] [address] [phone] * CT ABDOMEN PELVIS W CONTRAST (11/29/2015 3:48 AM FUEL HOUSE ATTENDANT) Anatomical Region Laterality Modality Abdomen, Pelvis Other Impressions 11/30/2015 10:49 AM FUEL HOUSE ATTENDANT IMPRESSION: 1. Right ovarian cyst measuring up to 6.6 cm in diameter with a small amount of surrounding fat stranding and free intraperitoneal fluid. Recommend correlation with the concurrent pelvic ultrasound. Preliminary findings were discussed with Dr. Mccloud by Dr. Dimas at 4:24 AM on 11/29/2015. Report dictated by Golden Dimas MD (resident). I, Dr. INGRID HOBSON M.D. have personally reviewed and interpreted this examination/study. This report was electronically signed by INGRID HOBSON M.D. on 11/30/2015 10:49 AM . Narrative 11/30/2015 10:49 AM FUEL HOUSE ATTENDANT EXAMINATION: Computed tomography (CT) of the abdomen and pelvis with contrast HISTORY: 35-year-old female with abdominal pain. TECHNIQUE: CT of the abdomen and pelvis was performed following the uneventful administration of 100 ml of Omnipaque 350 intravenous contrast according to standard protocol. FINDINGS: Correlation is made with the concurrent pelvic ultrasound dated 11/29/2015. The visualized lung bases are clear. The heart size is normal without pericardial effusion. The liver enhances homogenously. No focal intrahepatic lesions are seen. The gallbladder is surgically absent. No intrahepatic or extrahepatic biliary ductal dilatation is seen. The pancreas is normal. The spleen enhances homogenously. The adrenal glands are normal. The kidneys enhance symmetrically without evidence of hydronephrosis or hydroureter. A 5 mm hypoattenuating lesion in the mid zone of the left kidney is too small to characterize, but likely represents a cyst. A 1 mm nonobstructing renal calculus is seen in the lower pole of the right kidney. The stomach is normal. The small and large bowel are normal in caliber and without evidence of obstruction or bowel wall thickening. The appendix is not definitely seen, however there is no pericecal fat stranding to suggest appendicitis. No free intraperitoneal air is identified. Subcentimeter mesenteric and retroperitoneal lymph nodes are present. The abdominal aorta is normal in course and caliber. The urinary bladder is normal. There is a 5.5 x 6.6 (image 117 series 3) x 6.1 cm (image 85 series 5) cyst in the region of the right ovary. This measures slightly above simple fluid attenuation, however upon correlation with the concurrent pelvic ultrasound, this is consistent with a simple ovarian cyst. There is a small amount of surrounding free intraperitoneal fluid and mild fat stranding. The uterus is surgically absent. Bone windows demonstrate no suspicious lytic or blastic lesions. No acute osseous injury. Procedure Note Ingrid Hobson MD - 02/04/2018 EXAMINATION: Computed tomography (CT) of the abdomen and pelvis withcontrast HISTORY: 35-year-old female with abdominal pain. TECHNIQUE: CT of the abdomen and pelvis was performed following theuneventful administration of 100 ml of Omnipaque 350 intravenous contrastaccording to standard protocol. FINDINGS: Correlation is made with the concurrent pelvic ultrasound date11/29/2015. The visualized lung bases are clear. The heart size is normal withoutpericardial effusion. The liver enhances homogenously. No focal intrahepatic lesions are seen.The gallbladder is surgically absent. No intrahepatic or extrahepaticbiliary ductal dilatation is seen. The pancreas is normal. The spleenenhances homogenously. The adrenal glands are normal. The kidneys enhance symmetrically without evidence ofhydronephrosis or hydroureter. A 5 mm hypoattenuating lesion in the midzone of the left kidney is too small to characterize, but likelyrepresents a cyst. A 1 mm nonobstructing renal calculus is seen in the lower pole of the right kidney. The stomach is normal. The small and large bowel are normal in caliber andwithout evidence of obstruction or bowel wall thickening. The appendix isnot definitely seen, however there is no pericecal fat stranding tosuggest appendicitis. No free intraperitoneal air is identified. Subcentimeter mesenteric andretroperitoneal lymph nodes are present. The abdominal aorta is normal in course and caliber. The urinary bladder is normal. There is a 5.5 x 6.6 (image 117 series 3) x6.1 cm (image 85 series 5) cyst in the region of the right ovary. Thismeasures slightly above simple fluid attenuation, however upon correlationwith the concurrent pelvic ultrasound, this is consistent with a simple ovarian cyst. There is asmall amount of surrounding free intraperitoneal fluid and mild fatstranding. The uterus is surgically absent. Bone windows demonstrate no suspicious lytic or blastic lesions. No acuteosseous injury. IMPRESSION IMPRESSION: 1. Right ovarian cyst measuring up to 6.6 cm in diameter with a smallamount of surrounding fat stranding and free intraperitoneal fluid.Recommend correlation with the concurrent pelvic ultrasound. Preliminary findings were discussed with Dr. Mccloud by Dr. Dimas at4:24 AM on 11/29/2015. Report dictated by Golden Dimas MD (resident). I, Dr. INGRID HOBSON M.D. have personally reviewed and interpreted thisexamination/study. This report was electronically signed by INGRID HOBSON M.D. on 11/30/201510:49 AM . Aleksander Yan MD CT ORDERABLES * (ABNORMAL) BASIC METABOLIC PANEL (CALCIUM TOTAL) (11/29/2015 3:00 AM FUEL HOUSE ATTENDANT) BUN 11 7 - 26 mg/dL [facility] Creatinine 0.8 0.6 - 1.2 mg/dL [facility] Sodium 143 136 - 145 mmol/L [facility] Potassium 3.3(L) 3.5 - 4.5 mmol/L [facility] Chloride 114(H) 98 - 107 mmol/L [facility] CO2 21(L) 22 - 29 mmol/L [facility] Glucose 99 70 - 115 mg/dL [facility] Calcium 8.3(L) 8.4 - 10.2 mg/dL [facility] Anion Gap 11 8 - 18 [facility] BUN/Creatinine Ratio 14 7 - 23 [facility] Osmolality Calculated 280 270 - 300 mOsm/kg [facility] eGFR >60 >60 mL/min/1.7 3 m2 [facility] Blood specimen (specimen) BLOOD SPECIMEN / Unknown 11/29/2015 3:00 AM FUEL HOUSE ATTENDANT 11/29/2015 3:08 AM FUEL HOUSE ATTENDANT Aleksander Yan MD [facility] Organization Address City/State/ZIP Co de Phone Number [address] [phone] * CBC W AUTO DIFFERENTIAL (11/29/2015 2:31 AM FUEL HOUSE ATTENDANT) Only the most recent of2 resultswithin the time period is included. Blood specimen (specimen) BLOOD SPECIMEN / Unknown 11/29/2015 2:31 AM FUEL HOUSE ATTENDANT Narrative [facility] - 11/29/2015 2:47 AM FUEL HOUSE ATTENDANT The following orders were created for panel order CBC w Differential. Procedure Abnormality Status --------- ------ CBC WITH DIFFERENTIAL[[id number]] Abnormal Final result Please view results for these tests on the individual orders. Aleksander Yan MD LAB - HEMATOLOGY REBECCA TOLEDO Performing Organization Address [facility] Co de Phone Number [facility] [address] * LIPASE BLOOD (11/29/2015 2:31 AM FUEL HOUSE ATTENDANT) Lipase 23 8 - 78 Units/L [facility] Blood specimen (specimen) BLOOD SPECIMEN / Unknown 11/29/2015 2:31 AM FUEL HOUSE ATTENDANT 11/29/2015 2:31 AM FUEL HOUSE ATTENDANT Aleksander Yan MD LAB - CHEMISTRY MARCELA FOSS Performing Organization Address [facility] Co de Phone Number [address] [phone] Care Teams Social Work Faculty Member Relationship Specialty Start Date End Date Ze Menendez MD [address] [place] [address] PCP - General Family Medicine 11/29/15
== END 2025-01-14 12:28 | disposition home or self-care (01) ==
LOC: CHSIMG 12:29
PROVIDERS: PCP Nurse Practitioner Family; Visit Provider Nurse Practitioner Family
DX: Z12.31 Encounter for screening mammogram for malignant neoplasm of breast (principal)
CPT/HCPCS: 77063; 77067

== ENCOUNTER 2025-03-13 14:00 | Outpatient (RCR) | payer BC, SELFPAY ==
--- NOTE | 2025-04-03 17:52 | OPREHPOC ---
Outpatient Therapy Plan of Care This is a Multidisciplinary Plan of Care that may contain components documented by all disciplines (PT, OT, and ST.) PT Problem 1 PT Problem #1 Knowledge Deficit PT Goal 1 Goal / Goal Update Pt to be independent with HEP. Target Visit 2 Progress Met PT Problem 2 PT Problem #2 Pain PT Goal 1 Goal / Goal Update Pt to report 0/10 pain at rest. -met Pt to report no more than 4/10 pain with PROM exercises. -met Target Visit 12 Progress Met PT Problem 3 PT Problem #3 Impaired Range of Motion PT Goal 1 Goal / Goal Update Pt to improve R shoulder flexion PROM to 175 degrees. -met Pt to improve R shoulder ER prom to 80 degrees. - not met Pt to improve R shoulder abduction PROM to 150 degrees. -met Target Visit 12 Progress Partially Met PT Goal 2 Goal / Goal Update Pt to improve R flexion AROM to 165 degrees. -met Pt to improve R abduction AROM to 150 degrees. - met Target Visit 28 Progress Met PT Problem 4 PT Problem #4 Impaired Functional Mobility PT Goal 1 Goal / Goal Update Pt to improve quickDASH score to no more than 45% disability. 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 - met Target Visit 12 Progress Met PT Problem 5 PT Problem #5 Impaired Strength PT Goal 1 Goal / Goal Update Pt to improve gross R shoulder strength to 4+/5. Target Visit 28 Progress Met
--- NOTE | 2025-04-03 17:52 | PTOPDC ---
Assessment and note entered by Malissa Ledbetter, PT Evaluation Information Assessment Status Discharge Diagnosis Adhesive capsulitis of R shoulder ICD-10 Condition Codes (PT) Pain in right shoulder M25.511 Other ICD-10 Condition Codes ( M75.01 PT) Onset 04/07/24 Subjective Information Shelley reports her strength and ROM have improved a lot since starting PT in December. She has only minimal functional limitations in the arm and generally is able to perform all daily functional, occupational, and recreational activities using her R arm without pain. Reported Pain Level Pain Score 0: Self Report Assessment PT Clinical Summary Mrs. Garcia has attended 28 total skilled PT visits following capsular release of the R shoulder. Since beginning therapy she has made excellent progress in her passive and active shoulder ROM and has recently made great progress in her R shoulder strength. She no longer has shoulder pain, has been independent with her HEP and through exercise she's been able to return to normal functional use of her R arm. She has met or partially met all therapeutic goals set for her and feels capable of continuing her exercises on her own, and is appropriate for discharge at this time. Plan of Care PT Services Indicated No
== END 2025-06-11 23:59 | disposition home or self-care (01) ==
LOC: CHSPT 14:00
DX: M75.01 Adhesive capsulitis of right shoulder (principal)
CPT/HCPCS: 97110; 97112; 97140; 97150; 97530

== ENCOUNTER 2025-04-13 09:11 | Outpatient (CLI) | payer BC, SELFPAY ==
--- NOTE | 2025-04-13 | CONSULT_PTH ---
PATIENT: Shelley Garcia [facility][id number] AGE/SX: 44/F ROOM: RE04/13/[address]: Sal Tran APRN : 1980 BED: DIS: 04/13/2025 SPEC #: [id number] RECD: 04/13/25 09:42 STATUS: YAS REQ #: [id number] MARYLU: 04/13/25 00:[address]: Sal Tran DEPT: [facility] Consult RECD BY: Delaney Pimentel MLT, ([facility]) Tissues: A - Peripheral Smear Procedures: Hematology Consult
--- OUTSIDE RECORDS SUMMARY | 2025-04-13 09:14 | XMS_ITS | Clinical Summary ---
Author Organization [facility] Address [address] [place] [phone] Care Team Providers Care Advisory Internship Name Role Phone Sal Tran SANTANA Primary Care Provider [phone] Allergies No known active allergies Medications metFORMIN [...] 06/08 Glucose intolerance (impaired glucose tolerance) 06/30/2021 Surgical History Surgery Date Site/Laterality Comments HYSTERECTOMY [...] on file Legal Sex Female 3:09 AM ENGLISH LANGUAGE ARTS TEACHER Gender Identity Not on file Sexual Orientation Not on file Obstetrics History Last Filed Vital Signs Vital Sign Reading Time Taken Comments Blood Pressure 100/64 12/16/2021 8:09 AM ENGLISH LANGUAGE ARTS TEACHER Pulse 93 12/16/2021 8:09 AM ENGLISH LANGUAGE ARTS TEACHER Temperature - - Respiratory Rate - - Oxygen Saturation 97% 12/16/2021 8:09 AM ENGLISH LANGUAGE ARTS TEACHER Inhaled Oxygen Concentration - - Weight 96.5 kg (212 lb 11.2 oz) 12/16/2021 8:09 AM ENGLISH LANGUAGE ARTS TEACHER Height 165.1 cm (5' 5) 12/16/2021 8:09 AM ENGLISH LANGUAGE ARTS TEACHER Body Mass Index 35.4 12/16/2021 8:09 AM ENGLISH LANGUAGE ARTS TEACHER Plan of Treatment Health Maintenance Due Date Last Done Comments Breast Cancer Screening-Mammogram 1980 Colon Cancer Screening-Colonoscopy 1979 Depression Screening 1979 Hepatitis C Screening 1979 DTaP/Tdap/Td Vaccine (1 - Tdap) 1990 Hepatitis B Screening 1997 Regular Well Visit/Exam 18-64 1997 Covid-19 Vaccine (3 2023-2 5 season) 2024 12/11/2020, 11/13/2020 Influenza Vaccine (Season Ended) 2025 HPV Vaccines Aged Out No longer eligi ble based on patient's age to complete this topic Pneumococcal vaccine <65 Aged Out No longer eligible based on patient's age to complete this topic Insurance [facility] CHOICE PLUS [facility] HMO/PPO Address: [address] [address] [place] [address] [employer] BLUE ACCESS CHOICE [place] Care Teams Advisory Internship Relationship Specialty Start Date End Date Sal Tran NP [address] [place] [address] PCP - General Family Medicine 05/23/24
--- OUTSIDE RECORDS SUMMARY | 2025-04-13 09:14 | XMS_ITS ---
Author Organization Unknown Address [address] [place] [phone] Phone Care Team Providers Care Curriculum Consultant Name Role Phone NO PCP Attending Unavailable INFECTION PREVENTION Primary Unavailable Immunization Immunization Date Status Additional Notes Code Code System Influenza, split virus, trivalent, PF 09/04/2024 Completed 140 CVX Influenza, split virus, quadrivalent, PF 08/21/2021 Completed [...] PCR - Collect Date /Time: 04/16/2024 11:45 [facility] [id number] [place] [address], [id number] LOINC: 32064-3 Test Value Unit Reference Range Code Code System Flag SARS COV2 PCR NEGATIVE 27577-0 LOINC SENT TO C RN? YES A Social History Type Status Start Date End Date Code Code Syst em Smoking History Never smoker (Never Smoked) 735708882 SNOMED CT Sex Female Hospital Discharge Instructions [...]
--- OUTSIDE RECORDS SUMMARY | 2025-04-13 09:14 | XMS_ITS ---
Author Organization Unknown Address [address] [place] [phone] Phone Care Team Providers Care Glass Cleaner Name Role Phone NO PCP Attending Unavailable [...] mcg/0.25mL dose 11/04/2021 Completed 207 CVX Results 4 PLEX RESPIRATORY COVID FLU RSV PCR - Collect Date/Time: 02/18/2025 14:53 [facility] ID: [id number] [address] [place] [address], [id number] LOINC: 79885-2 Test Value Unit Reference Range Code Code System Flag SARS CoV2 PCR NEGATIVE 29024-7 LOINC FLU A PCR NEGATIVE FLU B PCR NEGATIVE RSV PCR NEGATIVE SEND TO [facility]? YES Social History Type Status Start Date End Date Code Code Syst em Smoking History Never smoker (Never Smoked) [id number] SNOMED CT Sex Female Hospital Discharge Instructions [...]
--- OUTSIDE RECORDS SUMMARY | 2025-04-13 09:14 | XMS_ITS | Referral Summary ---
Author Organization [facility] Address [address] [place] [phone] Care Team Providers Care Manager Social Services Name Role Phone Sal Tran SANTANA Primary Care Provider [phone] Allergies No known active allergies Medications metFORMIN [...] on file Legal Sex Female 3:09 AM AUTOMOBILE SERVICE WRITER Gender Identity Not on file Sexual Orientation Not on file Last Filed Vital Signs Vital Sign Reading Time Taken Comments Blood Pressure 100/64 12/16/2021 8:09 AM AUTOMOBILE SERVICE WRITER Pulse 93 12/16/2021 8:09 AM AUTOMOBILE SERVICE WRITER Temperature - - Respiratory Rate - - Oxygen Saturation 97% 12/16/2021 8:09 AM AUTOMOBILE SERVICE WRITER Inhaled Oxygen Concentration - - Weight 96.5 kg (212 lb 11.2 oz) 12/16/2021 8:09 AM AUTOMOBILE SERVICE WRITER Height 165.1 cm (5' 5) 12/16/2021 8:09 AM AUTOMOBILE SERVICE WRITER Body Mass Index 35.4 12/16/2021 8:09 AM AUTOMOBILE SERVICE WRITER Plan of Treatment Not on file Insurance CHOICE PLUS [address] [place] Care Teams Manager Social Services Relationship Specialty Start Date End Date Sal Tran NP [address] [place] [address] PCP - General Family Medicine 05/23/24
--- OUTSIDE RECORDS SUMMARY | 2025-04-13 09:14 | XMS_ITS | Clinical Summary ---
Author Organization [employer] [facility] Address [address] [place] [address] Care Team Providers Care Senior Tableau Developer Name Role Phone Unavailable Primary Care Provider [...] 30 mg 18 Tablet 12/07/2024 11:08 AM RADIO INSTALLER AUTOMOBILE 5 Active methylPREDNISol one (MEDROL DOSPACK) 4 mg Tablets, Dose Pack Please take as directed on Pack 21 Tablet 12/07/2024 11:08 AM RADIO INSTALLER AUTOMOBILE 5 Active docusate sodium (Dulcolax Stool Softener, dss,) 100 mg capsule Take 1 Capsule (100 mg) by mouth 2 times daily. 30 Capsule 12/07/2024 11:08 AM RADIO INSTALLER AUTOMOBILE 5 Active ondansetron (ZOFRAN ODT) 4 mg Tablet, Rapid Dissolve Dissolve 1 Tablet (4 mg) on top of tongue, then swallow with saliva every 8 hours as needed for Nausea/Vomiting. 30 Tablet 12/07/2024 11:08 AM RADIO INSTALLER AUTOMOBILE 5 Active Active Problems Problem Noted Date Diagnosed Date Adhesive capsulitis of right shoulder 11/19/2024 Encounters Date Type Department Care Team Description 04/09/2025 External Device Data [facility] ABSTRACTION Provider, Abstract 04/02/2025 External Device Data [facility] ABSTRACTION Provider, Abstract 03/28/2025 External Device Data [facility] ABSTRACTION Provider, Abstract 03/27/2025 External Device Data [facility] ABSTRACTION Provider, Abstract 03/11/2025 2:20 PM CDT Office Visit [facility] [address] [place] [address] Arcadio Epstein PA-C S/P shoulder surgery (Primary Dx) 01/28/2025 2:20 PM CDT Office Visit [facility] [address] [place] [address] Arcadio Epstein PA-C S/P shoulder surgery (Primary Dx) 01/23/2025 External Device Data [facility] ABSTRACTION Provider, Abstract 01/16/2025 External Device Data [facility] ABSTRACTION Provider, Abstract 01/15/2025 External Device Data [facility] ABSTRACTION Provider, Abstract 01/12/2025 External Device Data [facility] ABSTRACTION Provider, Abstract 01/12/2025 External Device Data [facility] ABSTRACTION Provider, Abstract from Last 3 Months Social History Tobacco [...] on file Legal Sex Female 8:51 AM RADIO INSTALLER AUTOMOBILE Gender Identity Not on file Sexual Orientation Not on file Last Filed Vital Signs Vital Sign Reading Time Taken Comments Blood Pressure 112/80 12/07/2024 11:02 AM RADIO INSTALLER AUTOMOBILE Pulse 85 12/07/2024 11:02 AM RADIO INSTALLER AUTOMOBILE Temperature 36.4 C (97.5 F) 12/07/2024 10:32 AM RADIO INSTALLER AUTOMOBILE Respiratory Rate 13 12/07/2024 10:20 AM RADIO INSTALLER AUTOMOBILE Oxygen Saturation 99% 12/07/2024 11:02 AM RADIO INSTALLER AUTOMOBILE Inhaled Oxygen Concentration - - Weight 64.4 kg (142 lb) 12/07/2024 6:46 AM RADIO INSTALLER AUTOMOBILE Height 165.1 cm (5' 5) 12/07/2024 6:46 AM RADIO INSTALLER AUTOMOBILE Body Mass Index 23.63 12/07/2024 6:46 AM RADIO INSTALLER AUTOMOBILE Plan of Treatment Health Maintenance Due Date Last Done Comments DTAP/TDAP/TD VACCINES (1 - Tdap) 1998 HEPATITIS B VACCINES (1 of 3 - 19+ 3-dose series) 1998 HPV/Cotest (21-29) 2000 CERVICAL CANCER SCREENING 2009 HPV/Cotest (30-65) 2009 PAP SMEAR 2009 BREAST CANCER SCREENING 2019 COVID-19 Vaccine ( season) 2024 11/04/2021, 12/11/2020, 11/13/2020 COLORECTAL SCREENING 2024 Colorectal Cancer Screening 2024 FIT-DNA Q 3 years 2024 FIT/FOBT Q 1 year 2024 Flex Sig/CT Colonography Q 5 years 2024 INFLUENZA VACCINE Completed 09/04/2024, , 08/19/2022, Additional history exists HPV VACCINES Aged Out No longer eligi ble based on patient's age to complete this topic Insurance [facility] BLUE ACCESS CHOICE RX [employer] Commercial Advance Directives For more information, please contact: [phone] * Full Code (Latest Code Status on File) Date Activated Date Inactivated Comments 12/07/2024 6:46 AM 12/07/2024 1:52 PM
--- OUTSIDE RECORDS SUMMARY | 2025-04-13 09:14 | XMS_ITS | Clinical Summary ---
Author Organization [facility] Address [address] [place] [address] Care Team Providers Care Equipment Application Specialist Name Role Phone Ze Menendez MD Primary Care Provider [phone] Source Comments [facility],non-owned Affiliates and Associated Physician Practices is amultiple site organization consisting of ambulatory clinics and hospital sitesin [place] and [place]. This disclosure is being madepursuant to the Care Everywhere program and may not contain all information available regarding this patient. Last updated 18.[facility] Allergies No known active allergies Medications * Be aware that medications may not be up to date on this document. Alwaysverify current medications with the patient. metFORMIN (GLUCOPHAGE) 500 MG tablet Take 500 [...] at Not on file Legal Sex Female 11:50 PM STRIPPER OPAQUER Gender Identity Not on file Sexual Orientation Not on file Last Filed Vital Signs Vital Sign Reading Time Taken Comments Blood Pressure 127/84 11/29/2015 3:00 AM STRIPPER OPAQUER Pulse 99 11/29/2015 5:26 AM STRIPPER OPAQUER Temperature 36.9 C (98.5 F) 11/29/2015 1:04 AM STRIPPER OPAQUER Respiratory Rate 18 11/29/2015 1:04 AM STRIPPER OPAQUER Oxygen Saturation 96% 11/29/2015 5:26 AM STRIPPER OPAQUER Inhaled Oxygen Concentration - - Weight 97.5 kg (215 lb) 11/29/2015 1:04 AM STRIPPER OPAQUER Height 165.1 cm (5' 5) 11/29/2015 1:04 AM STRIPPER OPAQUER Body Mass Index 35.78 11/29/2015 1:04 AM STRIPPER OPAQUER Plan of Treatment Health Maintenance Due Date [...] VACCINE (1 - 2023-2 5 season) 2024 DEPRESSION SCREENING 11/07/2024 INFLUENZA VACCINE (Season Ended) 2025 ZOSTER VACCINE (1 of 2) 2029 HIB VACCINE Aged Out No longer eligi ble based on patient's age to complete this topic HPV VACCINE Aged Out No longer eligi ble based on patient's age to complete this topic MENINGOCOCCAL (Group B) VACC INE SHARED DECISION-MAKING Aged Out No longer eligibl e based on patient's age to complete this topic MENINGOCOCCAL GROUPS A/C/Y/W VACCINE Aged Out No longer eligible b ased on patient's age to complete this topic PNEUMOCOCCAL VACCINE Aged Out No long er eligible based on patient's age to complete this topic Insurance ANTH [facility] Care Teams Equipment Application Specialist Relationship Specialty Start Date End Date Ze Menendez MD [address] [place] [id number] PCP - General Family Medicine 11/29/15
--- OUTSIDE RECORDS SUMMARY | 2025-04-13 09:14 | XMS_ITS ---
Author Organization Unknown Address [address] [place] [phone] Phone Care Team Providers Care Verification Specialist Name Role Phone NO PCP Attending Unavailable [...] ANTIGEN RAPID - Collect Date/Time: 09/26/2023 11:45 [facility] ID: [id number] [place], [place], [id number] LOINC: 28727-0 Test Value Unit Reference Range Code Code System Flag SARS ANTIGEN RAPID NEGATIVE 17634-9 LOINC SEND TO [facility]? YES A SARS COV2 PCR - Collect Date /Time: 09/26/2023 11:45 [facility] ID: [id number] [address] [place], [place], [id number] LOINC: 12047-3 Test Value Unit Reference Range Code Code System Flag SARS COV2 PCR NEGATIVE 92891-0 LOINC SENT TO [facility] RN? YES A Social History Type Status Start Date End Date Code Code Syst em Smoking History Never smoker (Never Smoked) [id number] SNOMED CT Sex Female Hospital Discharge Instructions [...]
[2025-04-13 09:22] LABS: Hematocrit 41.4 % (35.0-49.0); Hemoglobin 13.5 g/dL (12.0-15.0); Mean Corpuscular HGB Conc 32.6 g/dL (32-36); Mean Corpuscular Hemoglobin 29.5 pg (27.0-31.0); Mean Corpuscular Volume 90.6 fL (78.0-102.0); Mean Platelet Volume 11.1 fl (9.2-11.8); Platelet Count Result 161 K/mm3 (150-420); Red Blood Count 4.57 M/mm3 (4.20-5.40); Red Cell Distribution Width 12.4 % (11.6-14.4); White Blood Count 3.3 K/mm3 (4.8-10.8)
[2025-04-13 09:37] LABS: Hemoglobin A1C < 4.7 % (<5.7)
[2025-04-13 09:40] LABS: Band Neutrophils Percent 0 % (0-6); Eosinophils Absolute Manual 0.19 K/mm3 (0.02-0.50); Eosinophils Percent Manual 6 % (1-6); Lymphocytes Absolute Manual 1.41 K/mm3 (1.1-4.5); Lymphocytes Percent Manual 43 % (18-44); Monocytes Absolute Manual 0.23 K/mm3 (0.1-0.90); Monocytes Percent Manual 7 % (3-9); Neutrophils Absolute Manual 1.45 K/mm3 (1.3-6.7); Neutrophils Percent Manual 44 % (46-73); Platelet Estimate Adequate (Adequate); Total Cells Counted 100
[2025-04-13 09:52] LABS: Alanine Aminotransferase 51 U/L (6-35); Alkaline Phosphatase 59 U/L (38-126); Anion Gap 5 mmol/L (4-12); Aspartate Amino Transferase 203 U/L (14-36); Blood Urea Nitrogen 14 mg/dL (7-17); Calcium 9.3 mg/dL (8.4-10.2); Carbon Dioxide 28 mmol/L (22-30); Chloride 108 mmol/L (98-107); Cholesterol 173 mg/dL (0-200); Estimated Glomerular Filt Rate > 60; Glucose 79 mg/dL (65-110); HDL Direct 67 mg/dL; Iron 74 ug/dL (37-170); LDL Cholesterol Calculated 94 mg/dL (<130); Osmolality Calculated 291 mOsm/kg (285-295); Potassium 4.2 mmol/L (3.4-5.0); Sodium 141 mmol/L (137-145); Total Protein 6.5 g/dL (6.3-8.2); Triglycerides 58 mg/dL (<150)
[2025-04-13 10:00] LABS: Percent Iron Saturation 31 % (20-50)
[2025-04-13 10:08] LABS: Vitamin D 25 Hydroxy 27.1 ng/mL
[2025-04-13 10:58] LABS: Folic Acid 5.2 ng/mL (2.76->20)
== END 2025-04-13 09:12 | disposition home or self-care (01) ==
LOC: CHSLAB 09:11
PROVIDERS: PCP Nurse Practitioner Family; Visit Provider Nurse Practitioner Family
DX: Z00.00 Encounter for general adult medical examination without abnormal findings (principal); E61.1 Iron deficiency; R53.82 Chronic fatigue, unspecified
CPT/HCPCS: 36415; 80053; 80061; 82306; 82607; 82746; 83036; 83540; 83550; 84443; 85025

== ENCOUNTER 2025-04-30 17:33 | Outpatient (CLI) | payer BC, SELFPAY ==
[2025-04-30 17:55] LABS: Basophils Absolute Auto 0.03 K/mm3 (0.00-0.10); Basophils Percent Auto 0.5 % (0.0-1.0); Eosinophils Percent Auto 1.6 % (1.0-6.0); Hematocrit 37.5 % (35.0-49.0); Hemoglobin 12.4 g/dL (12.0-15.0); Immature Granulocyte Absolute 0.02 K/mm3 (0.00-0.00); Immature Granulocyte Percent A 0.3 % (0.0-0.0); Lymphocytes Absolute Auto 1.84 K/mm3 (1.10-4.50); Lymphocytes Percent Auto 29.1 % (18.0-42.0); Mean Corpuscular HGB Conc 33.1 g/dL (32-36); Mean Corpuscular Volume 90.6 fL (78.0-102.0); Mean Platelet Volume 10.9 fl (9.2-11.8); Monocytes Absolute Auto 0.47 K/mm3 (0.10-0.90); Monocytes Percent Auto 7.4 % (2.0-11.0); Neutrophils Absolute Auto 3.87 K/mm3 (1.70-7.20); Neutrophils Percent Auto 61.1 % (50.0-70.0); Platelet Count Result 185 K/mm3 (150-420); Red Blood Count 4.14 M/mm3 (4.20-5.40); Red Cell Distribution Width 12.6 % (11.6-14.4); White Blood Count 6.3 K/mm3 (4.8-10.8)
[2025-04-30 18:42] LABS: Alanine Aminotransferase 15 U/L (6-35); Alkaline Phosphatase 57 U/L (38-126); Aspartate Amino Transferase 21 U/L (14-36); Bilirubin Direct < 0.1 mg/dL (0-0.3); Bilirubin,Total 0.5 mg/dL (0.2-1.3); Total Protein 6.2 g/dL (6.3-8.2)
== END 2025-04-30 17:34 | disposition home or self-care (01) ==
LOC: CHSIMG 17:35
PROVIDERS: PCP Nurse Practitioner Family; Visit Provider Nurse Practitioner Family
DX: R79.89 Other specified abnormal findings of blood chemistry (principal); R74.8 Abnormal levels of other serum enzymes
CPT/HCPCS: 36415; 80076; 85025

== ENCOUNTER 2025-06-09 14:34 | Emergency (ER) | payer BC, SELFPAY ==
--- NOTE | ~2025-06-09 | CT_ITS ---
EXAMINATION: CT brain wo con DATE: 06/09/2025 15:05 INDICATION: headache/ blurry vision in Lt. eye, NKI . TECHNIQUE: Computed tomography (CT) of the head was performed without intravenous contrast. The mA wa s adjusted according to patient size. Iterative reconstruction technique was employed. The dose-lengt h product was 605.33 mGy-cm. COMPARISON: None. FINDINGS: No acute intracranial hemorrhage or extra-axial fluid collection. No hydrocephalus, mass, or herniation. No acute ischemic infarct. Unremarkable dural venous sinus attenuation. No acute osseous abnormality. The aerated spaces are clear. IMPRESSION: No acute intracranial process. Reviewed, dictated and finalized at location K.
[2025-06-09 14:36] VITALS: BP 125/97; PULSE 92; RESP 16; TEMP 36.6; O2SAT 99
--- OUTSIDE RECORDS SUMMARY | 2025-06-09 14:36 | XMS_ITS | Clinical Summary ---
Author Organization [facility] Address [facility] [address] [place] [address] Care Team Providers Care Banking Services Advisor Name Role Phone Unavailable Primary Care Provider Unavailabl e Social History Tobacco Use Types Packs/Day Years Used Date Smoking Tobacco: Never Assessed Comments Unknown Sex and Gender Information Value Date Recorded Sex Assigned at Not on file Legal Sex Female 11:09 PM CRYSTAL SYRUP MAKER Gender Identity Not on file Sexual Orientation [...] of 3 - 19+ 3-dose series) 1998 HPV Vaccines (1 - 3-dose SCD M series) 2006 Cervical Cancer Screening Pa p with HPV Testing (Age 30 to 64) Every 5 Years 2009 Cervical Cancer Screening with HPV 2009 Mammogram Screening 2019 COVID-19 Vaccine (2023-2 5 season) 2024 Meningococcal B Vaccine Aged Out No l onger eligible based on patient's age to complete this topic Meningococcal Vaccine Aged Out No anand yessi eligible based on patient's age to complete this topic Pneumococcal Vaccine: Pediat rics (0 to 5 Years) and At-Risk Patients (6 to 49 Years) Aged Out No longer eligible b ased on patient's age to complete this topic RSV Immunizations Under 20 Months Aged Out No longer eligible based on patient's age to complete this topic
--- OUTSIDE RECORDS SUMMARY | 2025-06-09 14:36 | XMS_ITS | Clinical Summary ---
Author Organization [employer] [facility] Address [address] [place] [address] Care Team Providers Care Shipping Room Supervisor Name Role Phone Unavailable Primary Care [...] 30 mg 18 Tablet 12/07/2024 11:08 AM BUSINESS ANALYST PROJECT MANAGER 5 Active methylPREDNISol one (MEDROL DOSPACK) 4 mg Tablets, Dose Pack Please take as directed on Pack 21 Tablet 12/07/2024 11:08 AM BUSINESS ANALYST PROJECT MANAGER 5 Active docusate sodium (Dulcolax Stool Softener, dss,) 100 mg capsule Take 1 Capsule (100 mg) by mouth 2 times daily. 30 Capsule 12/07/2024 11:08 AM BUSINESS ANALYST PROJECT MANAGER 5 Active ondansetron (ZOFRAN ODT) 4 mg Tablet, Rapid Dissolve Dissolve 1 Tablet (4 mg) on top of tongue, then swallow with saliva every 8 hours as needed for Nausea/Vomiting. 30 Tablet 12/07/2024 11:08 AM BUSINESS ANALYST PROJECT MANAGER 5 Active Active Problems Problem Noted Date Diagnosed Date Adhesive capsulitis of right shoulder 11/19/2024 Encounters Date Type Department Care Team Description 05/22/2025 External Device Data [facility] ABSTRACTION Provider, Abstract 05/22/2025 External Device Data [facility] ABSTRACTION Provider, Abstract 04/24/2025 External Device Data [facility] ABSTRACTION Provider, Abstract 04/09/2025 External Device Data [facility] ABSTRACTION Provider, Abstract 04/02/2025 External Device Data [facility] ABSTRACTION Provider, Abstract 03/28/2025 External Device Data [facility] ABSTRACTION Provider, Abstract 03/27/2025 External Device Data ST[facility] ABSTRACTION Provider, Abstract 03/11/2025 2:20 PM CDT Office Visit [facility] [address] [place] [address] Arcadio Epstein PA-C S/P shoulder surgery (Primary Dx) from Last 3 Months Social History Tobacco Use Types Packs/Day Years Used Date Smoking Tobacco: Never Tobacco Cessation:Counseling Given: Not Answered Alcohol Use Standard Drinks/Week Comments Never 0 (1 standard drink = 0.6 oz pur e alcohol) Comments Unknown Sex and Gender Information Value Date Recorded Sex Assigned at Not on file Legal Sex Female 8:51 AM BUSINESS ANALYST PROJECT MANAGER Gender Identity Not on file Sexual Orientation Not on file Last Filed Vital Signs Vital Sign Reading Time Taken Comments Blood Pressure 112/80 12/07/2024 11:02 AM BUSINESS ANALYST PROJECT MANAGER Pulse 85 12/07/2024 11:02 AM BUSINESS ANALYST PROJECT MANAGER Temperature 36.4 C (97.5 F) 12/07/2024 10:32 AM BUSINESS ANALYST PROJECT MANAGER Respiratory Rate 13 12/07/2024 10:20 AM BUSINESS ANALYST PROJECT MANAGER Oxygen Saturation 99% 12/07/2024 11:02 AM BUSINESS ANALYST PROJECT MANAGER Inhaled Oxygen Concentration - - Weight 64.4 kg (142 lb) 12/07/2024 6:46 AM BUSINESS ANALYST PROJECT MANAGER Height 165.1 cm (5' 5) 12/07/2024 6:46 AM BUSINESS ANALYST PROJECT MANAGER Body Mass Index 23.63 12/07/2024 6:46 AM BUSINESS ANALYST PROJECT MANAGER Plan of Treatment Health Maintenance Due Date Last Done Comments HPV VACCINES (1 - 3-dose series) 1994 DTAP/TDAP/TD VACCINES (1 - Tdap) 1998 HEPATITIS B VACCINES (1 of 3 - 19+ 3-dose series) 1998 HPV/Cotest (21-29) 2000 CERVICAL CANCER SCREENING 2009 HPV/Cotest (30-65) 2009 PAP SMEAR 2009 BREAST CANCER SCREENING 2019 COVID-19 Vaccine (2023-2 5 season) 2024 11/04/2021, 12/11/2020, 11/13/2020 COLORECTAL SCREENING 2024 Colorectal Cancer Screening 2024 FIT-DNA Q 3 years 2024 FIT/FOBT Q 1 year 2024 Flex Sig/CT Colonography Q 5 years 2024 INFLUENZA VACCINE (#1) 2025 , 08/07/2023, 08/19/2022, Additional history exists Insurance [employer] CHOICE RX [employer] Commercial Advance Directives For more information, please contact: [phone] * Full Code (Latest Code Status on File) Date Activated Date Inactivated Comments 12/07/2024 6:46 AM 12/07/2024 1:52 PM
--- OUTSIDE RECORDS SUMMARY | 2025-06-09 14:36 | XMS_ITS | Clinical Summary ---
Author Organization [facility] [employer] Address [address] [place] [address] Care Team Providers Care Terminal Supervisor Name Role Phone Ze Menendez MD Primary Care Provider [phone] Source Comments [facility] [employer],non-owned Affiliates and Associated Physician Practices is amultiple site organization consisting of ambulatory clinics and hospital sitesin [place], [place], [place] and [place]. This disclosure is being madepursuant to the Care Everywhere program and may not contain all information available regarding this patient. Last updated 18.[employer] Allergies No known active allergies Medications * [...] on file Legal Sex Female 11:50 PM COMPRESSION MOLDING MACHINE OPERATOR Gender Identity Not on file Sexual Orientation Not on file Last Filed Vital Signs Vital Sign Reading Time Taken Comments Blood Pressure 127/84 11/29/2015 3:00 AM COMPRESSION MOLDING MACHINE OPERATOR Pulse 99 11/29/2015 5:26 AM COMPRESSION MOLDING MACHINE OPERATOR Temperature 36.9 C (98.5 F) 11/29/2015 1:04 AM COMPRESSION MOLDING MACHINE OPERATOR Respiratory Rate 18 11/29/2015 1:04 AM COMPRESSION MOLDING MACHINE OPERATOR Oxygen Saturation 96% 11/29/2015 5:26 AM COMPRESSION MOLDING MACHINE OPERATOR Inhaled Oxygen Concentration - - Weight 97.5 kg (215 lb) 11/29/2015 1:04 AM COMPRESSION MOLDING MACHINE OPERATOR Height 165.1 cm (5' 5) 11/29/2015 1:04 AM COMPRESSION MOLDING MACHINE OPERATOR Body Mass Index 35.78 11/29/2015 1:04 AM COMPRESSION MOLDING MACHINE OPERATOR Plan of Treatment Health Maintenance Due Date Last Done Comments COLOGUARD (AGES 45-75) - COL ON CA SCREENING 1979 COLON MONITORING 1979 COLONOSCOPY - COLON CA SCREENING 1979 CT COLONOGRAPHY - COLON CA SCREENING 1979 Colorectal Cancer Screening 1979 FIT - COLON CA SCREENING 1979 FLEX SIG - COLON CA SCREENING 1979 LIPID TESTING 1979 MAMMOGRAM 1979 HIV SCREENING 1994 HEPATITIS C SCREENING 08/12/1997 DTAP/TDAP/TD VACCINES (1 - Tdap) 1998 HEPATITIS B VACCINE (1 of 3 - 19+ 3-dose series) 1998 PAP SMEAR 2000 HPV VACCINE (1 - 3-dose SCDM series) 2006 COVID-19 VACCINE (1 - 2023-2 5 season) 2024 DEPRESSION SCREENING 11/07/2024 INFLUENZA VACCINE (#1) 2025 ZOSTER VACCINE (1 of 2) 2029 [...] age to complete this topic Insurance ANTH [facility] Care Teams Terminal Supervisor Relationship Specialty Start Date End Date Ze Menendez MD [address] [place] [id number] PCP - General Family Medicine 11/29/15
--- OUTSIDE RECORDS SUMMARY | 2025-06-09 14:36 | XMS_ITS | Referral Summary ---
Author Organization [facility] Address [address] [place] [phone] Care Team Providers Care Strand Forming Machine Operator Name Role Phone Sal Tran SANTANA Primary Care Provider [phone] Allergies No known active allergies Medications metFORMIN [...] on file Legal Sex Female 3:09 AM WARDROBE SUPERVISOR Gender Identity Not on file Sexual Orientation Not on file Last Filed Vital Signs Vital Sign Reading Time Taken Comments Blood Pressure 100/64 12/16/2021 8:09 AM WARDROBE SUPERVISOR Pulse 93 12/16/2021 8:09 AM WARDROBE SUPERVISOR Temperature - - Respiratory Rate - - Oxygen Saturation 97% 12/16/2021 8:09 AM WARDROBE SUPERVISOR Inhaled Oxygen Concentration - - Weight 96.5 kg (212 lb 11.2 oz) 12/16/2021 8:09 AM WARDROBE SUPERVISOR Height 165.1 cm (5' 5) 12/16/2021 8:09 AM WARDROBE SUPERVISOR Body Mass Index 35.4 12/16/2021 8:09 AM WARDROBE SUPERVISOR Plan of Treatment Not on file Insurance CHOICE [employer]US [address] [facility] [place] Care Teams Strand Forming Machine Operator Relationship Specialty Start Date End Date Sal Tran NP [address] [place] [address] PCP - General Family Medicine 05/23/24
--- OUTSIDE RECORDS SUMMARY | 2025-06-09 14:36 | XMS_ITS | Clinical Summary ---
Author Organization [facility] Address [address] [place] [id number] Care Team Providers Care Hand Ornament Maker Name Role Phone Sal Tran SANTANA Primary Care Provider [phone] Allergies No known active allergies Medications metFORMIN [...] on file Legal Sex Female 3:09 AM CREDIT DIRECTOR Gender Identity Not on file Sexual Orientation Not on file Obstetrics History Last Filed Vital Signs Vital Sign Reading Time Taken Comments Blood Pressure 100/64 12/16/2021 8:09 AM CREDIT DIRECTOR Pulse 93 12/16/2021 8:09 AM CREDIT DIRECTOR Temperature - - Respiratory Rate - - Oxygen Saturation 97% 12/16/2021 8:09 AM CREDIT DIRECTOR Inhaled Oxygen Concentration - - Weight 96.5 kg (212 lb 11.2 oz) 12/16/2021 8:09 AM CREDIT DIRECTOR Height 165.1 cm (5' 5) 12/16/2021 8:09 AM CREDIT DIRECTOR Body Mass Index 35.4 12/16/2021 8:09 AM CREDIT DIRECTOR Plan of Treatment Health Maintenance Due Date Last Done Comments Breast Cancer Screening-Mammogram 1979 Colon Cancer Screening-Colonoscopy 1979 Depression Screening 1979 Hepatitis C Screening 1979 DTaP/Tdap/Td Vaccine (1 - Tdap) 1990 Hepatitis B Screening 1997 Regular Well Visit/Exam 18-64 1997 HPV Vaccines (1 - 3-dose SCD M series) 2006 Covid-19 Vaccine (2023-2 5 season) 2024 12/11/2020, 11/13/2020 Influenza Vaccine (#1) 2025 Pneumococcal vaccine <65 Aged Out No longer eligible based on patient's age to complete this topic Insurance [facility] CHOICE PLUS [facility] BLUE [employer] CHOICE [place] Care Teams Hand Ornament Maker Relationship Specialty Start Date End Date Sal Tran NP [address] [place] [address] PCP - General Family Medicine 05/23/24
--- OUTSIDE RECORDS SUMMARY | 2025-06-09 14:36 | XMS_ITS | Encounter Summary ---
Author Organization [facility] Address [address] [place] [address] Care Team Providers Care Remote Mortgage Underwriter Name Role Phone Unavailable Primary Care Provider Unavailabl e Encounter Details Date Type Department Care Team (Late st Contact Info) Description 04/14/2019 Abstract SFL CONVERSION [address] [place] [address] , Generic Conversion, Social History Tobacco Use Types Packs/Day Years Used Date Smoking Tobacco: Never Assessed Comments Unknown Sex and Gender Information Value Date Recorded Sex Assigned at Not on file Legal Sex Female 11:09 PM REGIONAL PLANNER Gender Identity Not on file Sexual Orientation Not on file documented as of this encounter Plan of Treatment Not on file documented as of this encounter Visit Diagnoses Not on filedocumented in this encounter
--- NOTE | 2025-06-09 14:39 | ED_ITS ---
HPI - Eye Problem General Chief complaint: Eye Problems Stated complaint: partial blurred cision in left eye Time Seen by Provider: 06/09/25 14:39 Source: patient and family Mode of arrival: ambulatory Limitations: no limitations History of Present Illness HPI Narrative: Patient is a 44-year-old female with acute onset left eye lateral aspect heat wave appearance for 15 minutes. At this time, the resolution of the vision change has occurred. No other neurological symptoms. No motor or sensory changes of the body. She had neurological eye exam a year ago for some bilateral blurry vision with a negative workup. There is a family history of blood clotting disease. MD chief complaint: vision change ( Left eye) Onset (ago): minute(s) ( 30) Onset description: sudden Duration: constant and improved Location: left eye Eye Symptoms: decreased vision ( left lateral vision impairment) Place: home Mechanism: none Severity: moderate Severity scale (1-10): 4 If Pain, Quality: other ( none) Context: other ( none) Associated symptoms: headache ( resolved) Treatments Prior to Arrival: none Related Data Home Medications ?Medication ?Instructions ?Recorded ?Confirmed ?Last Taken ?Type docusate sodium 100 mg capsule 100 mg PO BID 10/01/24 03/20/25 Unknown History (Colace) Allergies Allergy/AdvReac Type Severity Reaction Status Date / Time No Known Allergies Allergy Verified 06/09/25 14:36 Review of Systems 2 Review of Systems: All systems reviewed & are unremarkable except as noted in HPI and below Constitutional: Constitutional: Reports no additional constitutional complaints Eyes: Eyes: Reports no additional eye complaints ENT: Reports system reviewed and no additional complaints, except as documented Cardiovascular: Cardiovascular: Reports no additional cardiovascular complaints Respiratory: Respiratory: Reports no additional respiratory complaints Gastrointestinal: Gastrointestinal: Reports no additional gastrointestinal complaints Genitourinary: Genitourinary: Reports no additional female genitourinary complaints Musculoskeletal: Musculoskeletal: Reports no additional musculoskeletal complaints Integumentary/Breasts: Skin/Breast: Reports system reviewed and no additional complaints, except as docu Neurologic: Reports system reviewed and no additional complaints, except as documented Psychiatric: Psychiatric: Reports no additional psychiatric complaints Endocrine: Endocrine: Reports no additional endocrine complaints Hematologic/Lymphatic: Hematologic/Lymphatic: Reports no additional hematologic/lymphatic complaints Allergic/Immunologic: Allergic/Immunologic: Reports no additional allergic/immunologic complaints [facility] Past Medical History Medical History Frozen shoulder Incomplete right bundle branch block (RBBB) PCOS (polycystic ovarian syndrome) Class 2 obesity with body mass index (BMI) of 38.0 to 38.9 in adult Pre-diabetes Hypertension Surgical History Surgical History History of bilateral tubal ligation History of hysterectomy History of cholecystectomy Family History Family History Father , heart attack at 55 yo Acute myocardial infarction Other , massive [place] at 42 yo Acute myocardial infarction Other , massive [place] at 46 Acute myocardial infarction Other , massive [place] 57 yo Acute myocardial infarction Other , massive [place] at 37 yo Acute myocardial infarction Grandparent Breast cancer Social History Social History Smoking status: Never smoker Substance use: never Living arrangements: with family Additional living arrangements comments: . Occupation/Education: occupation Additional occupation/education comments: Works at [employer] Gender identity (if verbalized by the patient): Female Exam 2 Const: General: healthy appearing Nutritional Appearance: well nourished Orientation/consciousness: patient oriented x3 HENMT: Head: normal to inspection Ears: external ears normal F edith/Nose/Sinus: Normal external nose present Eyes: Conjunctivae: conjunctivae normal Pupils: Equal, round and reactive pupils present EOM: EOMs intact bilaterally Direct Ophthalmoscopy: no photophobia Neck: Neck: normal visual inspection Chest: Chest palpation & inspection: normal inspection of the chest Resp: Effort & Inspection: normal respiratory effort and not labored A uscultation: clear to auscultation bilaterally and no crackles Cardio: Rate: regular rate Rhythm: regular rhythm Heart sounds: no murmurs GI: Inspection: non-distended Auscultation: normal bowel sounds : General: Yes bladder normal to palpation Back/Spine/Pelvis: Back: no CVA tenderness Skin: General skin exam: normal color Rashes: no rashes Wounds: no wounds Neuro: General: patient oriented x3, moves all extremities, no meningeal signs, no focal motor deficits and CN's II-XI intact bilaterally Cranial nerves: Yes Nystagmus not present Speech: normal speech Gait exam (Neuro): Normal gait present Other: fast exam is negative, NIH score 0, GCS is 15, visual haile and vision is all baseline at this time and normal Extrem: General: normal to inspection Psych: Mental Status: mental status grossly normal Affect: normal affect Attitude: cooperative Course Vital Signs Vital signs: Vital Signs Temperature 36.6 C 06/09/25 14:36 Pulse Rate 92 06/09/25 14:36 Respiratory Rate 16 06/09/25 14:36 Blood Pressure 125/97 H 06/09/25 14:36 Pulse Oximetry 99 06/09/25 14:36 Oxygen Delivery Room Air 06/09/25 14:36 Temperature 36.6 C 06/09/25 14:36 Pulse Rate 92 06/09/25 14:36 Respiratory Rate 16 06/09/25 14:36 Blood Pressure 125/97 H 06/09/25 14:36 Pulse Oximetry 99 06/09/25 14:36 Oxygen Delivery Room Air 06/09/25 14:36 MDM - Eye Problem MDM Narrative Medical decision making narrative: patient is a 44-year-old female with left lateral eye vision loss/ heat wave appearance for 15 minutes with current resolution. We will do a cardiac neurological workup. Workup was negative and no further symptoms has occurred in the emergency room. If patient returns to the ER with similar symptoms we will transfer for neurology and ophthalmology evaluation. Lab Data Attestation: I reviewed the patient's lab results. 06/09/25 15:08 06/09/25 15:08 Labs: Lab Results 06/09/25 06/09/25 06/09/25 Range/Units 14:48 15:05 15:08 WBC 5.0 (4.8-10.8) K/mm3 RBC 4.22 (4.20-5.40) M/mm3 Hgb 12.6 (12.0-15.0) g/dL Hct 38.9 (35.0-49.0) % MCV 92.2 (78.0-102.0) fL MCH 29.9 (27.0-31.0) pg MCHC 32.4 (32-36) g/dL RDW 12.8 (11.6-14.4) % Plt Count 176 (150-420) K/mm3 MPV 10.1 (9.2-11.8) fl Immature Gran % (Auto) 0.2 H (0.0-0.0) % Neut % (Auto) 58.0 (50.0-70.0) % Lymph % (Auto) 30.7 (18.0-42.0) % [place] % (Auto) 7.5 (2.0-11.0) % Eos % (Auto) 2.8 (1.0-6.0) % Baso % (Auto) 0.8 (0.0-1.0) % Lymph # (Auto) 1.52 (1.10-4.50) K/mm3 [place] # (Auto) 0.37 (0.10-0.90) K/mm3 Eos # (Auto) 0.14 (0.02-0.50) K/mm3 Baso # (Auto) 0.04 (0.00-0.10) K/mm3 Abs Immat Gran (auto) 0.01 H (0.00-0.00) K/mm3 Absolute Neuts (auto) 2.87 (1.70-7.20) K/mm3 Absolute Nucleated RBC 0.00 (0.00-0.00) K/mm3 Nucleated RBC % 0.0 (0-0.0) % ESR Pending PT 11.2 (9.50-12.1) Seconds INR 1.0 APTT 29.2 (23.9-30.70) Sec Sodium 141 (137-145) mmol/L Potassium 4.0 (3.4-5.0) mmol/L Chloride 109 H (98-107) mmol/L Carbon Dioxide 29 (22-30) mmol/L Anion Gap 3 L (4-12) mmol/L BUN 20 H (7-17) mg/dL Creatinine 0.87 (0.7-1.0) mg/dL Estim Creat Clear Calc 64 ml/min Estimated GFR > 60 (59 - ) Glucose 80 (65-110) mg/dL Calculated Osmolality 293 (285-295) mOsm/kg Calcium 8.9 (8.4-10.2) mg/dL Total Bilirubin 0.5 (0.2-1.3) mg/dL AST 20 (14-36) U/L ALT 16 (6-35) U/L Alkaline Phosphatase 63 (38-126) U/L Troponin I < 0.012 (0.000-0.034) ng/mL C-Reactive Protein < 0.5 (<1.0) mg/dL Total Protein 6.5 (6.3-8.2) g/dL Albumin 4.2 (3.5-5.1) g/dL Urine Color Light yellow (Yellow) Urine Appearance Clear (Clear) Urine pH 6.0 (5.0-8.0) Ur Specific [place] >= 1.030 H (1.010-1.020) Urine Protein Negative (Negative) Urine Glucose (UA) Negative (Negative) Urine Ketones Negative (Negative) Ur Blood (Man) Negative (Negative) Urine Nitrate Negative (Negative) Urine Bilirubin Negative (Negative) Urine Urobilinogen 0.2 (0.2-1.0) mg/dL Leukocyte Esterase Rfl Negative (Negative) SUSHANT/UL Imaging Data Attestation: I personally reviewed and interpreted this imaging study as follows: Radiologist's impression: CT scan of the head is negative for acute process ECG Data EKG #1: Attestation: I personally reviewed and interpreted this ECG as follows: ECG completion date: 06/09/25 ECG completion time: 15:33 EKG Interpretation: normal rate, sinus rhythm, no ectopy, non-specific ST changes, normal QRS, normal QT and NL axis Discharge Plan Discharge Clinical Impression: Hemianopsia Patient Disposition: Home Condition: Stable Instructions: Blurred Vision (ED) Additional Instructions: please follow-up with an eye doctor appointment in the next 1-2 days for a complete examination. Further, you will need to see a neurologist if the eye doctor does not find any abnormalities. Come back to the emergency room with any recurrent symptoms. Patient Language: Vietnamese Prescriptions: No Action metformin 500 mg tablet 500 mg PO BIDWMEAL Qty: 180 2RF docusate sodium [Colace] 100 mg capsule 100 mg PO BID linaclotide 72 mcg capsule 72 mcg PO DAILY Qty: 30 2RF Follow-up/Referrals: Delano Nieves DO [Primary Care Provider] - Time of Disposition: 16:26
--- NOTE | 2025-06-09 14:47 | ECG_ITS ---
Test Date: 2025-06-09 14:58:18 Measurements Intervals [place] Rate: 67 P: 45 HI: 181 QRS: 79 QRSD: 84 T: 56 QT: 399 QTc: 421 Interpretive Statements SINUS RHYTHM POSSIBLE LEFT ATRIAL ENLARGEMENT BORDERLINE ECG No previous ECG available for comparison Electronically Signed On 06-09-2025 16:23:33 CDT by Adonis Westfall D.O.
[2025-06-09 15:00] VITALS: BP 105/79; PULSE 66; RESP 17; O2SAT 100
[2025-06-09 15:02] LABS: Add Urine Microscopic? NO; Appearance Urine Clear (Clear); Glucose Urine UA Negative (Negative); Leukocyte Esterase Ur Negative LEU/UL (Negative); Nitrate Urine Negative (Negative); Specific Grav Ur >= 1.030 (1.010-1.020)
[2025-06-09 15:15] LABS: Hematocrit 38.9 % (35.0-49.0); Hemoglobin 12.6 g/dL (12.0-15.0); Immature Granulocyte Percent A 0.2 % (0.0-0.0); Lymphocytes Absolute Auto 1.52 K/mm3 (1.10-4.50); Mean Corpuscular HGB Conc 32.4 g/dL (32-36); Mean Corpuscular Hemoglobin 29.9 pg (27.0-31.0); Mean Corpuscular Volume 92.2 fL (78.0-102.0); Nucleated Red Blood Cells Absolute Auto 0.00 K/mm3 (0.00-0.00); Nucleated Red Blood Cells Perc 0.0 % (0-0.0); Platelet Count Result 176 K/mm3 (150-420); Red Blood Count 4.22 M/mm3 (4.20-5.40); White Blood Count 5.0 K/mm3 (4.8-10.8)
--- OUTSIDE RECORDS SUMMARY | 2025-06-09 15:16 | XMS_ITS | Referral Summary ---
Author Organization [facility] Address [address] [place] [phone] Care Team Providers Care Tests Superintendent Name Role Phone Sal Tran SANTANA Primary Care Provider [phone] Allergies No known active allergies Medications metFORMIN [...] on file Legal Sex Female 3:09 AM FISH PITCHER Gender Identity Not on file Sexual Orientation Not on file Last Filed Vital Signs Vital Sign Reading Time Taken Comments Blood Pressure 100/64 12/16/2021 8:09 AM FISH PITCHER Pulse 93 12/16/2021 8:09 AM FISH PITCHER Temperature - - Respiratory Rate - - Oxygen Saturation 97% 12/16/2021 8:09 AM FISH PITCHER Inhaled Oxygen Concentration - - Weight 96.5 kg (212 lb 11.2 oz) 12/16/2021 8:09 AM FISH PITCHER Height 165.1 cm (5' 5) 12/16/2021 8:09 AM FISH PITCHER Body Mass Index 35.4 12/16/2021 8:09 AM FISH PITCHER Plan of Treatment Not on file Insurance CHOICE PLUS [address] [place] Care Teams Tests Superintendent Relationship Specialty Start Date End Date Sal Tran NP [address] [place] [address] PCP - General Family Medicine 05/23/24
--- OUTSIDE RECORDS SUMMARY | 2025-06-09 15:17 | XMS_ITS | Encounter Summary ---
Author Organization 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
--- OUTSIDE RECORDS SUMMARY | 2025-06-09 15:17 | XMS_ITS | Clinical Summary ---
Author Organization [email or web address] Address [address] [place] [address] Care Team Providers Care Sales Clerk Supervisor Name Role Phone Ze Menendez MD Primary Care Provider [phone] Source Comments [email or web address],non-owned Affiliates and Associated Physician Practices is amultiple site organization consisting of ambulatory clinics and hospital sitesin [place], [place], [place] and [place]. This disclosure is being madepursuant to the Care Everywhere program and may not contain all information available regarding this patient. Last updated [employer] [email or web address] Allergies No known active allergies Medications * [...] on file Legal Sex Female 11:50 PM AUTOMATION ARCHITECT Gender Identity Not on file Sexual Orientation Not on file Last Filed Vital Signs Vital Sign Reading Time Taken Comments Blood Pressure 127/84 11/29/2015 3:00 AM AUTOMATION ARCHITECT Pulse 99 11/29/2015 5:26 AM AUTOMATION ARCHITECT Temperature 36.9 C (98.5 F) 11/29/2015 1:04 AM AUTOMATION ARCHITECT Respiratory Rate 18 11/29/2015 1:04 AM AUTOMATION ARCHITECT Oxygen Saturation 96% 11/29/2015 5:26 AM AUTOMATION ARCHITECT Inhaled Oxygen Concentration - - Weight 97.5 kg (215 lb) 11/29/2015 1:04 AM AUTOMATION ARCHITECT Height 165.1 cm (5' 5) 11/29/2015 1:04 AM AUTOMATION ARCHITECT Body Mass Index 35.78 11/29/2015 1:04 AM AUTOMATION ARCHITECT Plan of Treatment Health Maintenance Due Date [...] age to complete this topic Insurance [facility] Care Teams Sales Clerk Supervisor Relationship Specialty Start Date End Date Ze Menendez MD [address] [place] [id number] PCP - General Family Medicine 11/29/15
--- OUTSIDE RECORDS SUMMARY | 2025-06-09 15:17 | XMS_ITS | Clinical Summary ---
Author Organization [facility] Address [address] [place] [address] Care Team Providers Care Clear Coat Sprayer Name Role Phone Unavailable Primary Care Provider [...] 30 mg 18 Tablet 12/07/2024 11:08 AM FAST FOOD TEAM MEMBER 5 Active methylPREDNISol one (MEDROL DOSPACK) 4 mg Tablets, Dose Pack Please take as directed on Pack 21 Tablet 12/07/2024 11:08 AM FAST FOOD TEAM MEMBER 5 Active docusate sodium (Dulcolax Stool Softener, dss,) 100 mg capsule Take 1 Capsule (100 mg) by mouth 2 times daily. 30 Capsule 12/07/2024 11:08 AM FAST FOOD TEAM MEMBER 5 Active ondansetron (ZOFRAN ODT) 4 mg Tablet, Rapid Dissolve Dissolve 1 Tablet (4 mg) on top of tongue, then swallow with saliva every 8 hours as needed for Nausea/Vomiting. 30 Tablet 12/07/2024 11:08 AM FAST FOOD TEAM MEMBER 5 Active Active Problems Problem Noted Date [...] Abstract 03/11/2025 2:20 PM CDT Office Visit [facility] [address] [place] [address] Arcadio Epstein PA-C S/P shoulder [...] on file Legal Sex Female 8:51 AM FAST FOOD TEAM MEMBER Gender Identity Not on file Sexual Orientation Not on file Last Filed Vital Signs Vital Sign Reading Time Taken Comments Blood Pressure 112/80 12/07/2024 11:02 AM FAST FOOD TEAM MEMBER Pulse 85 12/07/2024 11:02 AM FAST FOOD TEAM MEMBER Temperature 36.4 C (97.5 F) 12/07/2024 10:32 AM FAST FOOD TEAM MEMBER Respiratory Rate 13 12/07/2024 10:20 AM FAST FOOD TEAM MEMBER Oxygen Saturation 99% 12/07/2024 11:02 AM FAST FOOD TEAM MEMBER Inhaled Oxygen Concentration - - Weight 64.4 kg (142 lb) 12/07/2024 6:46 AM FAST FOOD TEAM MEMBER Height 165.1 cm (5' 5) 12/07/2024 6:46 AM FAST FOOD TEAM MEMBER Body Mass Index 23.63 12/07/2024 6:46 AM FAST FOOD TEAM MEMBER Plan of Treatment Health Maintenance Due Date [...] , 08/07/2023, 08/19/2022, Additional history exists Insurance [employer] Commercial Advance Directives For more information, please contact: [phone] * Full Code (Latest Code Status on File) Date Activated Date Inactivated Comments 12/07/2024 6:46 AM 12/07/2024 1:52 PM
--- OUTSIDE RECORDS SUMMARY | 2025-06-09 15:17 | XMS_ITS | Clinical Summary ---
Author Organization [facility] Address [address] [place] [id number] Care Team Providers Care Publication Distributor Name Role Phone Sal Tran SANTANA Primary Care Provider [phone] Allergies No known active allergies Medications metFORMIN [...] on file Legal Sex Female 3:09 AM WEEKEND ANCHOR Gender Identity Not on file Sexual Orientation Not on file Obstetrics History Last Filed Vital Signs Vital Sign Reading Time Taken Comments Blood Pressure 100/64 12/16/2021 8:09 AM WEEKEND ANCHOR Pulse 93 12/16/2021 8:09 AM WEEKEND ANCHOR Temperature - - Respiratory Rate - - Oxygen Saturation 97% 12/16/2021 8:09 AM WEEKEND ANCHOR Inhaled Oxygen Concentration - - Weight 96.5 kg (212 lb 11.2 oz) 12/16/2021 8:09 AM WEEKEND ANCHOR Height 165.1 cm (5' 5) 12/16/2021 8:09 AM WEEKEND ANCHOR Body Mass Index 35.4 12/16/2021 8:09 AM WEEKEND ANCHOR Plan of Treatment Health Maintenance Due Date [...] patient's age to complete this topic Insurance [facility] CHOICE PLUS [facility] HMO/PPO Address: [address] [address] [place] [address] [facility] BLUE [employer] CHOICE [place] Care Teams Publication Distributor Relationship Specialty Start Date End Date Sal Tran NP [address] [place] [address] PCP - General Family Medicine 05/23/24
--- OUTSIDE RECORDS SUMMARY | 2025-06-09 15:17 | XMS_ITS | Clinical Summary ---
Author Organization [facility] Address [facility] [place] [address] Care Team Providers Care Fitter'S Assistant Name Role Phone Unavailable Primary Care Provider Unavailabl e Social History Tobacco Use Types Packs/Day Years Used Date Smoking Tobacco: Never Assessed Comments Unknown Sex and Gender Information Value Date Recorded Sex Assigned at Not on file Legal Sex Female 11:09 PM RN [facility] Gender Identity Not on file Sexual Orientation [...]
[2025-06-09 15:26] LABS: Alanine Aminotransferase 16 U/L (6-35); Albumin Level 4.2 g/dL (3.5-5.1); Alkaline Phosphatase 63 U/L (38-126); Anion Gap 3 mmol/L (4-12); Aspartate Amino Transferase 20 U/L (14-36); Bilirubin,Total 0.5 mg/dL (0.2-1.3); Blood Urea Nitrogen 20 mg/dL (7-17); Calcium 8.9 mg/dL (8.4-10.2); Carbon Dioxide 29 mmol/L (22-30); Chloride 109 mmol/L (98-107); Estimated CRCL calculation 64 ml/min; Estimated Glomerular Filt Rate > 60; Glucose 80 mg/dL (65-110); Osmolality Calculated 293 mOsm/kg (285-295); Potassium 4.0 mmol/L (3.4-5.0); Sodium 141 mmol/L (137-145); Total Protein 6.5 g/dL (6.3-8.2)
[2025-06-09 15:27] LABS: INR 1.0; Partial Thromboplastin Time 29.2 Sec (23.9-30.70); Prothrombin Time 11.2 Seconds (9.50-12.1)
[2025-06-09 15:30] VITALS: BP 101/67; PULSE 65; RESP 17; O2SAT 100
[2025-06-09 15:38] LABS: Troponin I < 0.012 ng/mL (0.000-0.034)
[2025-06-09 15:42] LABS: CRP < 0.5 mg/dL (<1.0)
[2025-06-09 16:00] VITALS: BP 105/64; PULSE 71; RESP 18; O2SAT 100
[2025-06-09 16:29] VITALS: BP 102/67; PULSE 64; RESP 18; TEMP 36.6; O2SAT 100
== END 2025-06-09 16:29 | disposition home or self-care (01) ==
PROVIDERS: Emergency Provider Emergency Medicine; PCP Family Medicine
DX: H53.47 Heteronymous bilateral field defects (principal); I10 Essential (primary) hypertension; Z90.49 Acquired absence of other specified parts of digestive tract
CPT/HCPCS: 36415; 70450; 80053; 81003; 84484; 85025; 85610; 85652; 85730; 86140; 93005; 99284